=== PATIENT | male | born 1955 | race Caucasian/White ===

== ENCOUNTER 2017-06-14 10:24 | Inpatient (IN) | payer OTHER ==
--- NOTE | 2017-06-14 14:15 | RAD ---
HISTORY: chest pain COMPARISON: None available. TECHNIQUE: Chest, one view. FINDINGS: LUNGS: No focal consolidation. Please note that chest x-ray has limited sensitivity for the detection of pulmonary masses. PLEURA: No significant pleural effusion identified. No definite pneumothorax . CARDIOVASCULAR: The cardiomediastinal silhouette appears within normal limits of size. OSSEOUS STRUCTURES: No acute osseous abnormality identified. VISUALIZED UPPER ABDOMEN: Unremarkable. OTHER FINDINGS: None. IMPRESSION: No focal consolidation identified.
[2017-06-14 14:22] LABS: BASO # 0.2 K/uL (0.0-0.2); BASO % 1.7 % (0.0-2.0); EOS % 0.4 % (0.0-4.0); HEMOGLOBIN 8.2 g/dL (12.0-18.0); LYMPH # 1.6 K/uL (1.0-4.3); LYMPH % 13.8 % (20.0-40.0); MEAN CORPUSCULAR HEMOGLOBIN 19.1 pg (27.0-31.0); MEAN CORPUSCULAR HGB CONC 30.3 g/dL (33.0-37.0); MEAN PLATELET VOLUME 7.3 fL (7.2-11.7); MONO # 0.7 K/uL (0.0-0.8); MONO % 6.2 % (0.0-10.0); NEUT # 8.9 K/uL (1.8-7.0); NEUT % 77.9 % (50.0-75.0); NRBC % 0.1 % (0.0-2.0); RBC 4.27 Mil/uL (4.40-5.90); RED CELL DISTRIBUTION WIDTH 18.3 % (11.5-14.5); WHITE BLOOD COUNT 11.4 K/uL (4.8-10.8)
[2017-06-14 14:32] LABS: ALB/GLOB RATIO 1.2 (1.0-2.1); ALBUMIN 4.6 g/dL (3.5-5.0); ALT/SGPT 22 U/L (21-72); AST/SGOT 29 U/L (17-59); BLOOD UREA NITROGEN 18 mg/dL (9-20); CALCIUM 9.7 mg/dl (8.6-10.4); GFR AFRICAN-AMERICAN 50; GFR NON-AFRICAN AMERICAN 41
[2017-06-14 14:41] LABS: PROTHROMBIN TIME 11.3 SECONDS (9.7-12.2)
[2017-06-14] MEDS ORDERED: Sodium Chloride 0.9% 1,000 ML IV ONE ×2 (14:57→16:29)
[2017-06-14 16:10] LABS: SQUAMOUS EPITHIAL 1 /hpf (0-5); URINE BACTERIA MOD (<OCC); URINE BILIRUBIN NEGATIVE (NEGATIVE); URINE BLOOD 2+ (NEGATIVE); URINE CLARITY Hazy (Clear); URINE COLOR Amber (YELLOW); URINE GLUCOSE (UA) NORMAL (Normal); URINE HYALINE CAST >20 /lpf (0-2); URINE LEUKOCYTE ESTERASE 3+ Leu/uL (Negative); URINE NITRATE NEGATIVE (NEGATIVE); URINE PROTEIN 2+ mg/dL (NEGATIVE); URINE UROBILINOGEN NORMAL mg/dL (0.2-1.0)
[2017-06-14] MEDS ORDERED: Iodixanol 320 MG/ML 100 ML BOTTLE IV ONE (16:16)
--- NOTE | 2017-06-14 16:30 | C.PDOC ---
History Of Present Illness 62-year-old male, presents to the emergency department with complaints of one month duration of epigastric abdominal pain, and chest pain that radiates to back, and is described as a "tearing" sensation. Patient notes he was evaluated by his PMD and diagnosed with costochondritis. He was given Rx for muscle relaxants that he has been taking with minimal relief. Pain worsened over the past few days, resulting in him coming to the ED for evaluation. Secondary complaint is urinary retention. No other complaints at this time. Time Seen by Provider: 06/14/17 12:57 Chief Complaint (Nursing): Abdominal Pain History Per: Patient History/Exam Limitations: no limitations Onset/Duration Of Symptoms: Days Current Symptoms Are (Timing): Still Present Severity: Moderate Location Of Pain/Discomfort: Epigastric Radiation Of Pain To:: Back, Chest Past Medical History Reviewed: Historical Data, Nursing Documentation, Vital Signs Vital Signs: Last Vital Signs Temp 98.2 F 06/14/17 16:12 Pulse 100 H 06/14/17 16:12 Resp 20 06/14/17 16:12 BP 121/78 06/14/17 16:12 Pulse Ox 98 06/14/17 18:28 - Medical History PMH: HTN, Hypercholesterolemia Family History: States: No Known Family Hx - Social History Hx Alcohol Use: No Hx Substance Use: No - Immunization History Hx Influenza Vaccination: No Review Of Systems Except As Marked, All Systems Reviewed And Found Negative. Constitutional: Negative for: Fever, Chills Cardiovascular: Positive for: Chest Pain. Negative for: Palpitations, Orthopnea , Edema, Light Headedness Respiratory: Positive for: Shortness of Breath. Negative for: Hemoptysis, Sputum Gastrointestinal: Positive for: Abdominal Pain. Negative for: Nausea, Vomiting Musculoskeletal: Positive for: Back Pain Skin: Negative for: Rash Neurological: Negative for: Weakness, Numbness, Headache, Dizziness Physical Exam - Physical Exam Appears: Non-toxic, No Acute Distress Skin: Normal Color, Warm, Dry, No Diaphoretic, No Rash, No Jaundice Head: Atraumatic, Normacephalic Eye(s): bilateral: PERRL Nose: Normal Oral Mucosa: Moist Lips: Normal Appearing Neck: Normal ROM Chest: Symmetrical, No Tenderness Cardiovascular: Rhythm Regular, No Murmur Respiratory: Normal Breath Sounds, No Accessory Muscle Use Extremity: Normal ROM, No Deformity, No Swelling Neurological/Psych: Oriented x3, Normal Speech (no focal deficits) ED Course And Treatment - Laboratory Results Result Diagrams: 06/14/17 14:09 06/14/17 14:09 O2 Sat by Pulse Oximetry: 98 (RA) Pulse Ox Interpretation: Normal Critical Care Time - Critical Care Note Total Time (in mins): 35 Documented critical care: time excludes all time spent performing seperately billable procedures. Medical Decision Making Medical Decision Making: Plan: * CT Dissection r/o * EKG * CMP, Trop I * CBC, D-Dimer, PT/PTT * Morphine, Protonix, IVF x2, Toradol, Zofran * Reassess and Disposition At 1700, the patient began having large amounts vomiting bright red blood mixed with coffee grounds. NS IVF given. Zofran IV, octreotide IV, and protonix ordered. Case was discussed with Dr. Pena (covering for Dr. Duval) who states to order Protonix drip. Vomiting continues repeat CBC and type and cross ordered. BP is 115/51, HR 98. Patient found to have possible cholecystitis , but is not stable for ultrasound at this time. The case was discussed with Dr. Miranda (Remediation Project Engineer oncall) who agrees to place patient on ICU. Case was discussed Dr. Glen Longoria (PMD) who agrees to admit the patient to his service. Disposition - Disposition Disposition: HOSPITALIZED Disposition Time: 17:45 Condition: GUARDED - POA Present On Arrival: None - Clinical Impression Clinical Impression: Acute GI hemorrhage, Chest pain - Scribe Statement The provider has reviewed the documentation as recorded by the Scribe (Katherine Rose) All medical record entries made by the Scribe were at my direction and personally dictated by me. I have reviewed the chart and agree that the record accurately reflects my personal performance of the history, physical exam, medical decision making, and the department course for this patient. I have also personally directed, reviewed, and agree with the discharge instructions and disposition.
[2017-06-14] MEDS ORDERED: Sodium Chloride 0.9% 1,000 ML ONE (16:49)
--- NOTE | 2017-06-14 17:15 | CT ---
Dissection CT Indication: chest/epigast pain radiating to the back Technique: Contiguous axial images of the chest and abdomen without and with IV contrast utilizing dissection protocol. Coronal and Sagittal reformats generated and reviewed. This CT exam was performed using 1 or more of the following dose reduction techniques: Automated exposure control, adjustment of the MAA and/or kV according to patient size, and/or use of iterative reconstruction technique. Contrast: Oral contrast was not administered. 100 cc Visipaque IV was administered. Radiation dose: Total exam DLP = 1161.39 MGy-cm. Comparison: Chest x-ray performed 06/14/17 Findings: Visualized portions of the inferior thyroid gland appear unremarkable. The mediastinal and hilar vascular structures appear within normal limits. The heart appears within normal limits of size. Coronary artery calcifications. No large central or segmental pulmonary embolus evident. Mild emphysematous changes. No focal consolidation. No pleural effusion. No pneumothorax. No suspicious pulmonary nodules measuring greater than 5 mm. Distal gastric wall thickening/antral thickening; correlate clinically for gastritis. Pericholecystic gallbladder wall edema/ thickening. No calcified gallstones identified. Several too small to characterize renal hypodensities statistically likely cysts. Additional 1.5 cm right probable renal cyst. The liver, spleen, pancreas, and adrenal glands appear unremarkable. The stomach is nondistended. The bowel loops appear within normal limits of caliber without evidence of intestinal obstruction. Wall thickening of the proximal duodenum adjacent to the gallbladder may reflect infectious or inflammatory changes. Diverticulosis without CT evidence of acute diverticulitis. There is no definite free air. The appendix appears within normal limits of caliber. No secondary signs of acute appendicitis. Mild degenerative changes of the spine. Impression: Pericholecystic gallbladder wall edema/ thickening. Surrounding inflammatory changes. No calcified gallstones identified. Correlate for possibility of acute cholecystitis. Wall thickening of the proximal duodenum adjacent to the gallbladder may reflect infectious or inflammatory changes. Distal gastric wall thickening/antral thickening; correlate clinically for gastritis. Diverticulosis without CT evidence of acute diverticulitis. Mild emphysematous changes. Several too small to characterize renal hypodensities statistically likely cysts. Additional 1.5 cm right probable renal cyst. Additional findings as above.
[2017-06-14] MEDS ORDERED: Pantoprazole 80 MG in Sodium Chloride 0.9% 100 ML IV STA (18:26)
[2017-06-14] MEDS ORDERED: Morphine 4 MG/ML VIAL ONE (18:34)
--- NOTE | 2017-06-14 18:44 | CP.PCM.CON ---
History of Present Illness - History of Present Illness History of Present Illness: ICU Consult Note, PGY-1 Note 62 year old male with a past medical history of hypertension, hypercholesterolemia and Type 2 Diabetes comes into [facility] complaining of epigastric tenderness for the past one month. The patient describes the pain as sharp in nature with radiation to the back. As a result he reports a loss of 20lbs over the past three months. Patient denies any association with food intake. The patient also reports reproducible chest pain that has been recurring for the past six weeks. Of note the patient went to his PMD on May 21 and was diagnosed with costochondritis. The patient denies any palpitations, syncopal episodes, recent travel, sick contacts, changes in types of foods consumes, nausea, vomiting, headaches, or any other complaints. Past medical history: htn, hypercholesterolemia, dm Medications: Metformin 850mg Daily, Simvastatin 20mg Daily, Lisinopril-HCTZ: 12.5MG Daily, Gabapentin 300mg Daily, Metoprolol 50mg Daily Past surgical history : Denies Allergies: Denies Social: 50 year x1 pack a day. Social drinker. Denies illicit drug use. Lives with Full code Review of Systems - Constitutional Constitutional: Weight Loss. absent: Anorexia, Daytime Sleepiness, Fever, Frequent Falls, Headache, Malaise, Night Sweats, Snoring - EENT Eyes: absent: Blurred Vision, Loss of Peripheral Vision, Sees Flashes Ears: absent: Ear Discharge, Dizziness Nose/Mouth/Throat: absent: Nose Pain, Halitosis - Cardiovascular Cardiovascular: absent: Chest Pain at Rest, Diaphoresis, Irregular Heart Rhythm , Leg Edema - Respiratory Respiratory: absent: Dyspnea, Pain on Inspiration, Change in Mucous Color - Gastrointestinal Gastrointestinal: Change in Stool Character. absent: Diarrhea, Fecal Incontinence, Loose Stools, Melena, Nausea, Vomiting - Genitourinary Genitourinary: absent: Change in Urinary Stream, Pyuria, Urinary Hesitance - Musculoskeletal Musculoskeletal: absent: Arthralgias, Limited Range of Motion, Myalgias, Tingling - Integumentary Integumentary: absent: Bleeding Lesions, Sores, Striae, Swelling - Neurological Neurological: absent: Abnormal Hearing, Burning Sensations, Tingling, Tremor, Vertigo, Weakness - Psychiatric Psychiatric: absent: Anhedonia, Behavioral Changes, Depression, Panic Attacks - Endocrine Endocrine: absent: Polyphagia, Polyuria Past Patient History - Past Social History Smoking Status: Light Smoker < 10 Cigarettes Daily - CARDIAC Hx Hypercholesterolemia: Yes Hx Hypertension: Yes - ENDOCRINE/METABOLIC Hx Endocrine Disorders: Yes Hx Diabetes Mellitus Type 2: Yes - PSYCHIATRIC Hx Substance Use: No - ANESTHESIA Hx Anesthesia: No Meds Allergies/Adverse Reactions: Allergies Allergy/AdvReac Type Severity Reaction Status Date / Time No Known Allergies Allergy Verified 06/14/17 11:42 - Medications Medications: Current Medications Pantoprazole Sodium 80 mg/ (Sodium Chloride) 100 mls @ 10 mls/hr IV .Q10H STA PRN Reason: 8 MG/HR Stop: 06/15/17 04:25 Physical Exam - Head Exam Head Exam: ATRAUMATIC, NORMAL INSPECTION, NORMOCEPHALIC - Eye Exam Eye Exam: EOMI, Normal appearance, PERRL Pupil Exam: NORMAL ACCOMODATION, PERRL - ENT Exam ENT Exam: Mucous Membranes Moist, Normal Exam, Normal Oropharynx - Neck Exam Neck exam: Positive for: Normal Inspection. Negative for: Lymphadenopathy, Thyromegaly - Respiratory Exam Respiratory Exam: Clear to Auscultation Bilateral, NORMAL BREATHING PATTERN. absent: Chest Wall Tenderness, Prolonged Expiratory Phase, Respiratory Distress - Cardiovascular Exam Cardiovascular Exam: REGULAR RHYTHM, +S1, +S2 - GI/Abdominal Exam GI & Abdominal Exam: Normal Bowel Sounds, Soft, Tenderness - Rectal Exam Rectal Exam: absent: NORMAL INSPECTION - Extremities Exam Extremities exam: Positive for: full ROM. Negative for: joint swelling, pedal edema Additional comments: chronic venous changes noted. - Back Exam Back exam: NORMAL INSPECTION. absent: CVA tenderness (L), CVA tenderness (R), paraspinal tenderness - Neurological Exam Neurological exam: Alert, CN II-XII Intact, Oriented x3 - Psychiatric Exam Psychiatric exam: Normal Affect, Normal Mood - Skin Skin Exam: Dry, Intact Results - Vital Signs Recent Vital Signs: Last Vital Signs Temp 98.2 F 06/14/17 16:12 Pulse 100 H 06/14/17 16:12 Resp 20 06/14/17 16:12 BP 107/54 L 06/14/17 18:10 Pulse Ox 98 06/14/17 18:29 - Labs Result Diagrams: 06/15/17 06:28 06/15/17 06:28 Labs: Laboratory Results - last 24 hr 06/14/17 06/14/1718 11:45 14:09 14:09 WBC 11.4 H RBC 4.27 L Hgb 8.2 L Hct 26.9 L MCV 63.0 L MCH 19.1 L MCHC 30.3 L RDW 18.3 H Plt Count 712 H MPV 7.3 Neut % (Auto) 77.9 H Lymph % (Auto) 13.8 L [place] % (Auto) 6.2 Eos % (Auto) 0.4 Baso % (Auto) 1.7 Neut # (Auto) 8.9 H Lymph # (Auto) 1.6 [place] # (Auto) 0.7 Eos # (Auto) 0.0 Baso # (Auto) 0.2 Differential Comment PT 11.3 INR 1.0 APTT 34 D-Dimer, Quantitative 923 H Sodium Potassium Chloride Carbon Dioxide Anion Gap BUN Creatinine Est GFR ( Amer) Est GFR (Non-Af Amer) POC Glucose (mg/dL) 152 H Random Glucose Calcium Total Bilirubin AST ALT Alkaline Phosphatase Troponin I Total Protein Albumin Globulin Albumin/Globulin Ratio Urine Color Urine Clarity Urine pH Ur Specific [place] Urine Protein Urine Glucose (UA) Urine Ketones Urine Blood Urine Nitrate Urine Bilirubin Urine Urobilinogen Ur Leukocyte Esterase Urine WBC (Auto) Urine RBC (Auto) Ur Squamous Epith Cells Ur Transition Epith Cell Urine Bacteria Hyaline Casts Stool Occult Blood 06/14/17 06/14/17 06/14/17 14:09 15:50 15:50 WBC RBC Hgb Hct MCV MCH MCHC RDW Plt Count MPV Neut % (Auto) Lymph % (Auto) [place] % (Auto) Eos % (Auto) Baso % (Auto) Neut # (Auto) Lymph # (Auto) [place] # (Auto) Eos # (Auto) Baso # (Auto) Differential Comment PT INR APTT D-Dimer, Quantitative Sodium 134 Potassium 4.2 Chloride 93 L Carbon Dioxide 23 Anion Gap 23 H BUN 18 Creatinine 1.7 H Est GFR ( Amer) 50 Est GFR (Non-Af Amer) 41 POC Glucose (mg/dL) Random Glucose 160 H Calcium 9.7 Total Bilirubin 0.8 AST 29 ALT 22 Alkaline Phosphatase 119 Troponin I < 0.0120 Total Protein 8.4 H Albumin 4.6 Globulin 3.8 Albumin/Globulin Ratio 1.2 Urine Color [place] Urine Clarity Hazy Urine pH 5.0 Ur Specific [place] 1.016 Urine Protein 2+ H Urine Glucose (UA) Normal Urine Ketones Negative Urine Blood 2+ H Urine Nitrate Negative Urine Bilirubin Negative Urine Urobilinogen Normal Ur Leukocyte Esterase 3+ H Urine WBC (Auto) 125 H Urine RBC (Auto) 16 H Ur Squamous Epith Cells 1 Ur Transition Epith Cell 1 Urine Bacteria Mod H Hyaline Casts >20 H Stool Occult Blood Positive H Assessment & Plan - Assessment and Plan (Free Text) Assessment: 62 year old male with a past medical history of diabetes, hypertension, hypercholesterolemia being admitted for acute gi bleed. Plan: -IV NS @100cc/hr -Dr. Duval consulted. Will f/u with rec's. -CBC Q6 H. -NPO -Heparin contraindicated at this time. Will hold. -Continue Protonix Drip -All PO devon meds held. -Accuchecks -Transfused patient 2 units if Hemoglobin drops below 7. -Type and Screen. Discussed case with Dr. Miranda. Disposition: Patient seen and examined by ICU. Patient will be admitted to ICU for further management.
[2017-06-14] MEDS: Sodium Chloride 0.9% 1,000 ML IV SCH (19:05)
[2017-06-14 19:21] LABS: BASO # 0.1 K/uL (0.0-0.2); BASO % 0.5 % (0.0-2.0); EOS # 0.1 K/uL (0.0-0.7); EOS % 0.5 % (0.0-4.0); HEMOGLOBIN 6.6 g/dL (12.0-18.0); LYMPH # 1.2 K/uL (1.0-4.3); LYMPH % 10.5 % (20.0-40.0); MEAN CELL VOLUME 63.6 fL (80.0-94.0); MEAN CORPUSCULAR HEMOGLOBIN 19.4 pg (27.0-31.0); MEAN CORPUSCULAR HGB CONC 30.5 g/dL (33.0-37.0); MEAN PLATELET VOLUME 7.4 fL (7.2-11.7); MONO # 0.8 K/uL (0.0-0.8); MONO % 6.8 % (0.0-10.0); NEUT # 9.5 K/uL (1.8-7.0); NEUT % 81.7 % (50.0-75.0); RBC 3.39 Mil/uL (4.40-5.90); RED CELL DISTRIBUTION WIDTH 18.1 % (11.5-14.5); WHITE BLOOD COUNT 11.6 K/uL (4.8-10.8)
--- NOTE | 2017-06-14 19:44 | CP.PCM.CON ---
History of Present Illness - History of Present Illness History of Present Illness: ASked to see pt this evening for GI bleed. 1 month inf sharp CP and epig pain. 3 months wt loss- 20 lbs. Poor po x 3 months. Tooks NSAID x 1 month. Reports black stool on and off x 2 weeks. Had black stool x1 today am. Vomited coffee grounds in ER x 1. Denies PUD, dysphagia. Review of Systems - Constitutional Constitutional: Anorexia, Fatigue, Weight Loss - EENT Eyes: absent: Photophobia Nose/Mouth/Throat: absent: Dysphagia - Cardiovascular Cardiovascular: Chest Pain, Dyspnea. absent: Palpitations, Pedal Edema, Syncope - Respiratory Respiratory: absent: Cough, Hemoptysis, Wheezing - Gastrointestinal Gastrointestinal: Abdominal Pain, Coffee Ground Emesis, Dyspepsia, Hematemesis, Melena, Vomiting. absent: Dysphagia - Genitourinary Genitourinary: absent: Hematuria - Musculoskeletal Musculoskeletal: absent: Muscle Cramps, Muscle Weakness - Integumentary Integumentary: absent: Rash, Jaundice - Neurological Neurological: absent: Convulsions Past Patient History - Past Social History Smoking Status: Light Smoker < 10 Cigarettes Daily - CARDIAC Hx Hypercholesterolemia: Yes Hx Hypertension: Yes - ENDOCRINE/METABOLIC Hx Endocrine Disorders: Yes Hx Diabetes Mellitus Type 2: Yes - PSYCHIATRIC Hx Substance Use: No - ANESTHESIA Hx Anesthesia: No Meds Allergies/Adverse Reactions: Allergies Allergy/AdvReac Type Severity Reaction Status Date / Time No Known Allergies Allergy Verified 06/14/17 11:42 - Medications Medications: Current Medications Pantoprazole Sodium 80 mg/ (Sodium Chloride) 100 mls @ 10 mls/hr IV .Q10H STA PRN Reason: 8 MG/HR Stop: 06/15/17 04:25 Last Admin: 06/14/17 19:05 Dose: 10 mls/hr Sodium Chloride (Sodium Chloride 0.9%) 1,000 mls @ 100 mls/hr IV .Q10H CRUZ Last Admin: 06/14/17 19:05 Dose: 100 mls/hr Physical Exam - Constitutional Appears: Non-toxic - Respiratory Exam Respiratory Exam: Clear to Auscultation Bilateral - Cardiovascular Exam Cardiovascular Exam: RRR - GI/Abdominal Exam GI & Abdominal Exam: Normal Bowel Sounds, Soft. absent: Distended, Guarding, Mass, Rebound, Tenderness - Extremities Exam Extremities exam: Negative for: calf tenderness, pedal edema - Neurological Exam Neurological exam: Alert, Oriented x3 - Psychiatric Exam Psychiatric exam: Normal Mood Results - Vital Signs Recent Vital Signs: Last Vital Signs Temp 98.2 F 06/14/17 16:12 Pulse 83 06/14/17 18:36 Resp 18 06/14/17 18:36 BP 100/56 L 06/14/17 18:57 Pulse Ox 100 06/14/17 18:57 - Labs Result Diagrams: 06/14/17 19:05 06/14/17 14:09 Labs: Laboratory Results - last 24 hr 06/14/17 06/14/17 06/14/17 11:45 14:09 14:09 WBC 11.4 H RBC 4.27 L Hgb 8.2 L Hct 26.9 L MCV 63.0 L MCH 19.1 L MCHC 30.3 L RDW 18.3 H Plt Count 712 H MPV 7.3 Neut % (Auto) 77.9 H Lymph % (Auto) 13.8 L [place] % (Auto) 6.2 Eos % (Auto) 0.4 Baso % (Auto) 1.7 Neut # (Auto) 8.9 H Lymph # (Auto) 1.6 [place] # (Auto) 0.7 Eos # (Auto) 0.0 Baso # (Auto) 0.2 Differential Comment PT 11.3 INR 1.0 APTT 34 D-Dimer, Quantitative 923 H Sodium Potassium Chloride Carbon Dioxide Anion Gap BUN Creatinine Est GFR ( Amer) Est GFR (Non-Af Amer) POC Glucose (mg/dL) 152 H Random Glucose Calcium Total Bilirubin AST ALT Alkaline Phosphatase Troponin I Total Protein Albumin Globulin Albumin/Globulin Ratio Lipase Urine Color Urine Clarity Urine pH Ur Specific [place] Urine Protein Urine Glucose (UA) Urine Ketones Urine Blood Urine Nitrate Urine Bilirubin Urine Urobilinogen Ur Leukocyte Esterase Urine WBC (Auto) Urine RBC (Auto) Ur Squamous Epith Cells Ur Transition Epith Cell Urine Bacteria Hyaline Casts Stool Occult Blood Blood Type 06/14/17 06/14/17 06/14/17 14:09 15:50 15:50 WBC RBC Hgb Hct MCV MCH MCHC RDW Plt Count MPV Neut % (Auto) Lymph % (Auto) [place] % (Auto) Eos % (Auto) Baso % (Auto) Neut # (Auto) Lymph # (Auto) [place] # (Auto) Eos # (Auto) Baso # (Auto) Differential Comment PT INR APTT D-Dimer, Quantitative Sodium 134 Potassium 4.2 Chloride 93 L Carbon Dioxide 23 Anion Gap 23 H BUN 18 Creatinine 1.7 H Est GFR ( Amer) 50 Est GFR (Non-Af Amer) 41 POC Glucose (mg/dL) Random Glucose 160 H Calcium 9.7 Total Bilirubin 0.8 AST 29 ALT 22 Alkaline Phosphatase 119 Troponin I < 0.0120 Total Protein 8.4 H Albumin 4.6 Globulin 3.8 Albumin/Globulin Ratio 1.2 Lipase Urine Color [place] Urine Clarity Hazy Urine pH 5.0 Ur Specific [place] 1.016 Urine Protein 2+ H Urine Glucose (UA) Normal Urine Ketones Negative Urine Blood 2+ H Urine Nitrate Negative Urine Bilirubin Negative Urine Urobilinogen Normal Ur Leukocyte Esterase 3+ H Urine WBC (Auto) 125 H Urine RBC (Auto) 16 H Ur Squamous Epith Cells 1 Ur Transition Epith Cell 1 Urine Bacteria Mod H Hyaline Casts >20 H Stool Occult Blood Positive H Blood Type 06/14/17 06/14/17 06/14/17 19:05 19:05 19:05 WBC 11.6 H RBC 3.39 L Hgb 6.6 L Hct 21.6 L MCV 63.6 L MCH 19.4 L MCHC 30.5 L RDW 18.1 H Plt Count 538 H D MPV 7.4 Neut % (Auto) 81.7 H Lymph % (Auto) 10.5 L [place] % (Auto) 6.8 Eos % (Auto) 0.5 Baso % (Auto) 0.5 Neut # (Auto) 9.5 H Lymph # (Auto) 1.2 [place] # (Auto) 0.8 Eos # (Auto) 0.1 Baso # (Auto) 0.1 Differential Comment PT INR APTT D-Dimer, Quantitative Sodium Potassium Chloride Carbon Dioxide Anion Gap BUN Creatinine Est GFR ( Amer) Est GFR (Non-Af Amer) POC Glucose (mg/dL) Random Glucose Calcium Total Bilirubin AST ALT Alkaline Phosphatase Troponin I Total Protein Albumin Globulin Albumin/Globulin Ratio Lipase 135 Urine Color Urine Clarity Urine pH Ur Specific [place] Urine Protein Urine Glucose (UA) Urine Ketones Urine Blood Urine Nitrate Urine Bilirubin Urine Urobilinogen Ur Leukocyte Esterase Urine WBC (Auto) Urine RBC (Auto) Ur Squamous Epith Cells Ur Transition Epith Cell Urine Bacteria Hyaline Casts Stool Occult Blood Blood Type O POSITIVE Assessment & Plan (1) Epigastric pain Assessment and Plan: Consider PUD, MWT, gastritis, gastric CA Status: Acute (2) Diabetes mellitus Status: Acute (3) HTN (hypertension) Assessment and Plan: Meds on hold due to BP- 90 Status: Acute (4) Weight loss Assessment and Plan: Consider ulcer or tumorHematemesis and melena: c/w UGIB. Likely ulcer. Consider MWT, tumor, AVM. + NSAIDs. Denies ETOH. REc: NPO Transfuse 2 units PPI drip EGD when stable- CBC and CP. Discussed with DR Gannon and ER PA. Status: Acute (5) Acute GI hemorrhage Status: Acute (6) Chest pain Status: Acute (7) Abnormal CT of the abdomen Assessment and Plan: Consider ulcer, inflammation, or tumor. Status: Acute (8) ARF (acute renal failure) Assessment and Plan: Cr 1.7 Status: Acute
[2017-06-15] MEDS: Sodium Chloride 0.9% 1,000 ML IV SCH (05:25)
[2017-06-15] MEDS: Pantoprazole 80 MG in Sodium Chloride 0.9% 100 ML IVP SCH ×2 (05:51→15:04)
[2017-06-15 06:39] LABS: MEAN CELL VOLUME 68.5 fL (80.0-94.0); MEAN CORPUSCULAR HEMOGLOBIN 22.2 pg (27.0-31.0); MEAN CORPUSCULAR HGB CONC 32.4 g/dL (33.0-37.0); MEAN PLATELET VOLUME 7.7 fL (7.2-11.7); RBC 3.63 Mil/uL (4.40-5.90); RED CELL DISTRIBUTION WIDTH 22.1 % (11.5-14.5); WHITE BLOOD COUNT 8.6 K/uL (4.8-10.8)
[2017-06-15 06:53] LABS: ALB/GLOB RATIO 1.1 (1.0-2.1); ALBUMIN 3.2 g/dL (3.5-5.0); ALT/SGPT 21 U/L (21-72); AST/SGOT 28 U/L (17-59); BLOOD UREA NITROGEN 23 mg/dL (9-20); CALCIUM 8.1 mg/dl (8.6-10.4); GFR AFRICAN-AMERICAN > 60; GFR NON-AFRICAN AMERICAN > 60
[2017-06-15] MEDS ORDERED: Propofol 10 mg/ml Inj (20 ML) ONE (07:28)
--- NOTE | 2017-06-15 09:31 | CP.PCM.HP ---
History of Present Illness - History of Present Illness History of Present Illness: CC: Abd pain 62 y/o male with heavy Tobacco use, NIDDM, HTN and hyperlipidemia. Patient had pain all over his body. Pain is describe as pricking sensation and cramps all over his body. He was seen in [facility] and [facility] A1C, normal CPK. TSH and Hg 13. Initially refuse colonoscopy/ GI eval but agreed on wkend c/o inc pain. Pain got worse on night on 06/12. Pt was [facility] ER Present on Admission - Present on Admission Any Indicators Present on Admission: Yes History of DVT/PE: No History of Uncontrolled Diabetes: No Urinary Catheter: No Decubitus Ulcer Present: No Review of Systems - Review of Systems Systems not reviewed;Unavailable: Acuity of Condition - Constitutional Constitutional: Malaise, Night Sweats, Weight Loss, Weakness. absent: Fever, Headache - EENT Eyes: absent: Diplopia, Loss of Peripheral Vision, Requires Corrective Lenses, Spots in Vision, Loss of Vision Ears: absent: Ear Pain, Disequilibrium, Dizziness Nose/Mouth/Throat: absent: Nasal Congestion, Nose Pain, Sinus Pressure, Bleeding Gums, Dysphagia - Cardiovascular Cardiovascular: Chest Pain. absent: Edema, Leg Edema, Palpitations, Pedal Edema , Slow Heart Rate, Syncope - Respiratory Respiratory: Cough, Wheezing, Chest Congestion, Pain with Coughing. absent: Dyspnea, Pain on Inspiration, Excessive Mucous Production, Change in Mucous Color - Gastrointestinal Gastrointestinal: Cramping, Early Satiety, Heartburn, Nausea. absent: Bloating , Coffee Ground Emesis, Diarrhea, Dyspepsia - Genitourinary Genitourinary: Nocturia. absent: Dysuria, Hematuria, Pyuria - Musculoskeletal Musculoskeletal: Back Pain, Muscle Cramps, Muscle Weakness, Myalgias, Tingling. absent: Joint Swelling, Loss of Height, Numbness - Integumentary Integumentary: absent: Dry Skin, Rash, Unusual Bruising - Neurological Neurological: Abnormal Gait, Radicular Pain, Restless Legs. absent: Dizziness, Vertigo Past Patient History - Infectious Disease Hx of Infectious Diseases: None - Past Medical History & Family History Past Medical History?: Yes - Past Social History Smoking Status: Light Smoker < 10 Cigarettes Daily - CARDIAC Hx Hypercholesterolemia: Yes Hx Hypertension: Yes - PULMONARY Hx Respiratory Disorders: No - NEUROLOGICAL Hx Neurological Disorder: No - HEENT Hx HEENT Problems: No - RENAL Hx Chronic Kidney Disease: No - ENDOCRINE/METABOLIC Hx Endocrine Disorders: Yes Hx Diabetes Mellitus Type 2: Yes - HEMATOLOGICAL/ONCOLOGICAL Hx Blood Disorders: No - INTEGUMENTARY Hx Dermatological Problems: No - MUSCULOSKELETAL/RHEUMATOLOGICAL Hx Falls: No - GASTROINTESTINAL Hx Gastrointestinal Disorders: No - GENITOURINARY/GYNECOLOGICAL Hx Genitourinary Disorders: No - PSYCHIATRIC Hx Substance Use: No - SURGICAL HISTORY Hx Surgeries: No - ANESTHESIA Hx Anesthesia: No Meds Allergies/Adverse Reactions: Allergies Allergy/AdvReac Type Severity Reaction Status Date / Time No Known Allergies Allergy Verified 06/14/17 11:42 Physical Exam - Constitutional Appears: No Acute Distress - Eye Exam Eye Exam: Normal appearance - ENT Exam ENT Exam: Mucous Membranes Moist - Neck Exam Neck exam: Positive for: Full Rom. Negative for: Lymphadenopathy, Normal Inspection, Thyromegaly - Respiratory Exam Respiratory Exam: Decreased Breath Sounds. absent: Rhonchi, Wheezes - Cardiovascular Exam Cardiovascular Exam: REGULAR RHYTHM, +S1, +S2. absent: Gallop, JVD, Systolic Murmur - GI/Abdominal Exam GI & Abdominal Exam: Soft. absent: Mass, Tenderness - Extremities Exam Extremities exam: Positive for: full ROM, normal capillary refill, pedal pulses present. Negative for: calf tenderness, joint swelling, pedal edema Results - Vital Signs Recent Vital Signs: Last Vital Signs Temp 98.0 F 06/15/17 08:00 Pulse 67 06/15/17 09:05 Resp 10 L 06/15/17 09:05 BP 127/65 06/15/17 09:06 Pulse Ox 100 06/15/17 09:05 - Labs Result Diagrams: 06/15/17 06:28 06/15/17 06:28 Labs: Laboratory Results - last 24 hr 06/14/17 06/14/17 06/14/17 11:45 14:09 14:09 WBC 11.4 H RBC 4.27 L Hgb 8.2 L Hct 26.9 L MCV 63.0 L MCH 19.1 L MCHC 30.3 L RDW 18.3 H Plt Count 712 H MPV 7.3 Neut % (Auto) 77.9 H Lymph % (Auto) 13.8 L [place] % (Auto) 6.2 Eos % (Auto) 0.4 Baso % (Auto) 1.7 Neut # (Auto) 8.9 H Lymph # (Auto) 1.6 [place] # (Auto) 0.7 Eos # (Auto) 0.0 Baso # (Auto) 0.2 Differential Comment PT 11.3 INR 1.0 APTT 34 D-Dimer, Quantitative 923 H Sodium Potassium Chloride Carbon Dioxide Anion Gap BUN Creatinine Est GFR ( Amer) Est GFR (Non-Af Amer) POC Glucose (mg/dL) 152 H Random Glucose Calcium Total Bilirubin AST ALT Alkaline Phosphatase Troponin I Total Protein Albumin Globulin Albumin/Globulin Ratio Lipase Urine Color Urine Clarity Urine pH Ur Specific [place] Urine Protein Urine Glucose (UA) Urine Ketones Urine Blood Urine Nitrate Urine Bilirubin Urine Urobilinogen Ur Leukocyte Esterase Urine WBC (Auto) Urine RBC (Auto) Ur Squamous Epith Cells Ur Transition Epith Cell Urine Bacteria Hyaline Casts Stool Occult Blood Blood Type Antibody Screen 06/14/17 06/14/17 06/14/17 14:09 15:50 15:50 WBC RBC Hgb Hct MCV MCH MCHC RDW Plt Count MPV Neut % (Auto) Lymph % (Auto) [place] % (Auto) Eos % (Auto) Baso % (Auto) Neut # (Auto) Lymph # (Auto) [place] # (Auto) Eos # (Auto) Baso # (Auto) Differential Comment PT INR APTT D-Dimer, Quantitative Sodium 134 Potassium 4.2 Chloride 93 L Carbon Dioxide 23 Anion Gap 23 H BUN 18 Creatinine 1.7 H Est GFR ( Amer) 50 Est GFR (Non-Af Amer) 41 POC Glucose (mg/dL) Random Glucose 160 H Calcium 9.7 Total Bilirubin 0.8 AST 29 ALT 22 Alkaline Phosphatase 119 Troponin I < 0.0120 Total Protein 8.4 H Albumin 4.6 Globulin 3.8 Albumin/Globulin Ratio 1.2 Lipase Urine Color [place] Urine Clarity Hazy Urine pH 5.0 Ur Specific [place] 1.016 Urine Protein 2+ H Urine Glucose (UA) Normal Urine Ketones Negative Urine Blood 2+ H Urine Nitrate Negative Urine Bilirubin Negative Urine Urobilinogen Normal Ur Leukocyte Esterase 3+ H Urine WBC (Auto) 125 H Urine RBC (Auto) 16 H Ur Squamous Epith Cells 1 Ur Transition Epith Cell 1 Urine Bacteria Mod H Hyaline Casts >20 H Stool Occult Blood Positive H Blood Type Antibody Screen 06/14/17 06/14/17 06/14/17 19:05 19:05 19:05 WBC 11.6 H RBC 3.39 L Hgb 6.6 L Hct 21.6 L MCV 63.6 L MCH 19.4 L MCHC 30.5 L RDW 18.1 H Plt Count 538 H D MPV 7.4 Neut % (Auto) 81.7 H Lymph % (Auto) 10.5 L [place] % (Auto) 6.8 Eos % (Auto) 0.5 Baso % (Auto) 0.5 Neut # (Auto) 9.5 H Lymph # (Auto) 1.2 [place] # (Auto) 0.8 Eos # (Auto) 0.1 Baso # (Auto) 0.1 Differential Comment PT INR APTT D-Dimer, Quantitative Sodium Potassium Chloride Carbon Dioxide Anion Gap BUN Creatinine Est GFR ( Amer) Est GFR (Non-Af Amer) POC Glucose (mg/dL) Random Glucose Calcium Total Bilirubin AST ALT Alkaline Phosphatase Troponin I Total Protein Albumin Globulin Albumin/Globulin Ratio Lipase 135 Urine Color Urine Clarity Urine pH Ur Specific [place] Urine Protein Urine Glucose (UA) Urine Ketones Urine Blood Urine Nitrate Urine Bilirubin Urine Urobilinogen Ur Leukocyte Esterase Urine WBC (Auto) Urine RBC (Auto) Ur Squamous Epith Cells Ur Transition Epith Cell Urine Bacteria Hyaline Casts Stool Occult Blood Blood Type O POSITIVE Antibody Screen Negative 06/15/17 06/15/17 06:28 06:28 WBC 8.6 RBC 3.63 L Hgb 8.0 L Hct 24.9 L MCV 68.5 L D MCH 22.2 L MCHC 32.4 L RDW 22.1 H Plt Count 446 H MPV 7.7 Neut % (Auto) Lymph % (Auto) [place] % (Auto) Eos % (Auto) Baso % (Auto) Neut # (Auto) Lymph # (Auto) [place] # (Auto) Eos # (Auto) Baso # (Auto) Differential Comment PT INR APTT D-Dimer, Quantitative Sodium 132 Potassium 4.2 Chloride 99 Carbon Dioxide 23 Anion Gap 14 BUN 23 H Creatinine 1.2 Est GFR ( Amer) > 60 Est GFR (Non-Af Amer) > 60 POC Glucose (mg/dL) Random Glucose 122 H Calcium 8.1 L Total Bilirubin 1.6 H AST 28 ALT 21 Alkaline Phosphatase 71 Troponin I Total Protein 6.1 L Albumin 3.2 L D Globulin 2.9 Albumin/Globulin Ratio 1.1 Lipase Urine Color Urine Clarity Urine pH Ur Specific [place] Urine Protein Urine Glucose (UA) Urine Ketones Urine Blood Urine Nitrate Urine Bilirubin Urine Urobilinogen Ur Leukocyte Esterase Urine WBC (Auto) Urine RBC (Auto) Ur Squamous Epith Cells Ur Transition Epith Cell Urine Bacteria Hyaline Casts Stool Occult Blood Blood Type Antibody Screen - EKG Data EKG Interpreted by: Myself Rate: Normal Assessment & Plan - Assessment and Plan (Free Text) Assessment: GI Bleed; HTN, NIDDM, COPD CT reviewed Cont meds/ Add Advair FS monitoring promise to quit smoking
[2017-06-15] MEDS ORDERED: Dextrose 5%/0.9% NS 1,000 ML IV SCH (10:30)
[2017-06-15] MEDS ORDERED: (Novolin R) Insulin Human Regular 100 units/ml vial SC SCH ×2 (10:45→22:00)
[2017-06-15] MEDS: (Novolin R) Insulin Human Regular 100 units/ml vial SC SCH ×2 (12:03→17:31)
[2017-06-15] MEDS: Fluticasone-Salmeterol 250-50mcg Diskus INH SCH (21:15)
[2017-06-16] MEDS: Pantoprazole 80 MG in Sodium Chloride 0.9% 100 ML IVP SCH (01:32)
--- NOTE | 2017-06-16 03:03 | PCM.RRT ---
CUTTER TENDER Nurses Assessment - Situation Date: 06/16/17 - Head Head Exam: NORMAL INSPECTION - Eyes Eye Exam: EOMI, Normal appearance - Respiratory Exam Respiratory Exam: Clear to Ausculation Bilateral, NORMAL BREATHING PATTERN. absent: Respiratory Distress - Cardiovascular Exam Cardiovascular Exam: REGULAR RHYTHM, +S1, +S2 - GI/Abdominal Exam GI & Abdominal Exam: Normal Bowel Sounds - Neurological Exam Neurological Exam: Awake - Extremities Exam Extremities Exam: Normal Inspection Plan - Assessment of Findings&Treatment Plan CUTTER TENDER was called for vomiting blood. Patient admitted for GI bleed had one episode of vomiting bright red blood. Gown and sheets were soaked. Patient states he feels dizzy and weak. Vitals were taken: BP 88/50, HR 89, O2 99%, Glucose 206. NS bolus was started. Patient already on protonix drip. CBC ordered for 30 minutes after bolus. ICU was called and agreed to take patient. Vitals rechecked: BP 112/72, HR 90, O2 98%. EKG nsr. Patient transferring to ICU bed 2.
[2017-06-16 04:03] LABS: BASO # 0.3 K/uL (0.0-0.2); BASO % 2.5 % (0.0-2.0); EOS # 0.3 K/uL (0.0-0.7); EOS % 2.7 % (0.0-4.0); LYMPH # 0.7 K/uL (1.0-4.3); LYMPH % 7.1 % (20.0-40.0); MEAN CORPUSCULAR HEMOGLOBIN 21.3 pg (27.0-31.0); MEAN CORPUSCULAR HGB CONC 30.9 g/dL (33.0-37.0); MEAN PLATELET VOLUME 6.9 fL (7.2-11.7); MONO # 0.5 K/uL (0.0-0.8); MONO % 4.7 % (0.0-10.0); NEUT # 8.7 K/uL (1.8-7.0); PLATELET COUNT 412 K/uL (130-400); RBC 2.84 Mil/uL (4.40-5.90); RED CELL DISTRIBUTION WIDTH 21.2 % (11.5-14.5); WHITE BLOOD COUNT 10.5 K/uL (4.8-10.8)
[2017-06-16 04:06] LABS: HEMOGLOBIN 6.1 g/dL (12.0-18.0)
--- NOTE | 2017-06-16 04:59 | CP.PCM.CON ---
History of Present Illness - History of Present Illness History of Present Illness: 62 year old male with a past medical history of diabetes, hypertension, hypercholesterolemia admitted for acute GI bleed initially in ICU transferred to floor.COLLEGE ADVISOR was called for vomiting blood. Patient had one episode of vomiting bright red blood. Gown and sheets were soaked. Patient states he feels dizzy and weak. was hypotensive, Glucose 206. IVF started and continued on protonix drip. CBC showed drop in Hb to 6.1 Review of Systems - Review of Systems Systems not reviewed;Unavailable: Unstable Vital Signs - Constitutional Constitutional: absent: Chills, Fever - EENT Eyes: absent: Blurred Vision, Itchy Eyes Ears: absent: Ear Discharge, Dizziness Nose/Mouth/Throat: absent: Sore Throat - Cardiovascular Cardiovascular: absent: Chest Pain, Dyspnea, Edema - Respiratory Respiratory: absent: Cough, Dyspnea - Gastrointestinal Gastrointestinal: absent: Abdominal Pain, Heartburn, Nausea, Vomiting - Genitourinary Genitourinary: absent: Dysuria, Urinary Frequency - Musculoskeletal Musculoskeletal: absent: Neck Pain - Integumentary Integumentary: absent: Pruritus, Rash - Neurological Neurological: absent: Confusion, Focal Weakness - Hematologic/Lymphatic Hematologic: absent: Easy Bleeding Past Patient History - Infectious Disease Hx of Infectious Diseases: None - Past Medical History & Family History Past Medical History?: Yes - Past Social History Smoking Status: Light Smoker < 10 Cigarettes Daily - CARDIAC Hx Hypercholesterolemia: Yes Hx Hypertension: Yes - PULMONARY Hx Respiratory Disorders: No - NEUROLOGICAL Hx Neurological Disorder: No - HEENT Hx HEENT Problems: No - RENAL Hx Chronic Kidney Disease: No - ENDOCRINE/METABOLIC Hx Endocrine Disorders: Yes Hx Diabetes Mellitus Type 2: Yes - HEMATOLOGICAL/ONCOLOGICAL Hx Blood Disorders: No - INTEGUMENTARY Hx Dermatological Problems: No - MUSCULOSKELETAL/RHEUMATOLOGICAL Hx Falls: No - GASTROINTESTINAL Hx Gastrointestinal Disorders: No - GENITOURINARY/GYNECOLOGICAL Hx Genitourinary Disorders: No - PSYCHIATRIC Hx Substance Use: No - SURGICAL HISTORY Hx Surgeries: No - ANESTHESIA Hx Anesthesia: No Meds Allergies/Adverse Reactions: Allergies Allergy/AdvReac Type Severity Reaction Status Date / Time No Known Allergies Allergy Verified 06/14/17 11:42 - Medications Medications: Current Medications Pantoprazole Sodium 80 mg/ (Sodium Chloride) 100 mls @ 10 mls/hr IVP .Q10H [facility] PRN Reason: 8 MG/HR Last Admin: 06/16/17 01:32 Dose: 10 mls/hr Insulin Human Regular (Novolin R) 0 unit SC ACHS [facility] PRN Reason: Protocol Last Admin: 06/15/17 22:14 Dose: Not Given Pneumococcal Polyvalent Vaccine (Pneumovax 23 Vaccine) 0.5 ml IM .ONCE ONE Stop: 06/16/17 10:01 Fluticasone/Salmeterol (Advair Diskus 250/50) 1 puff INH RQ12 [facility] Physical Exam - Constitutional Appears: No Acute Distress - Head Exam Head Exam: ATRAUMATIC, NORMAL INSPECTION, NORMOCEPHALIC - Eye Exam Eye Exam: EOMI, Normal appearance, PERRL - ENT Exam ENT Exam: Mucous Membranes Moist - Neck Exam Neck exam: Positive for: Normal Inspection - Respiratory Exam Respiratory Exam: Clear to Auscultation Bilateral, NORMAL BREATHING PATTERN - Cardiovascular Exam Cardiovascular Exam: REGULAR RHYTHM. absent: JVD, Systolic Murmur - GI/Abdominal Exam GI & Abdominal Exam: Normal Bowel Sounds, Soft. absent: Tenderness - Extremities Exam Extremities exam: Positive for: normal inspection. Negative for: calf tenderness, pedal edema - Neurological Exam Neurological exam: Alert, Oriented x3 - Skin Skin Exam: Pallor Results - Vital Signs Recent Vital Signs: Last Vital Signs Temp 98.5 F 06/16/17 04:00 Pulse 84 06/16/17 04:28 Resp 14 06/16/17 04:28 BP 110/69 06/16/17 00:00 Pulse Ox 100 06/16/17 04:28 - Labs Result Diagrams: 06/16/17 03:59 06/15/17 06:28 Labs: Laboratory Results - last 24 hr 06/14/17 06/15/17 06/15/17 19:05 06:28 06:28 WBC 8.6 RBC 3.63 L Hgb 8.0 L Hct 24.9 L MCV 68.5 L D MCH 22.2 L MCHC 32.4 L RDW 22.1 H Plt Count 446 H MPV 7.7 Neut % (Auto) Lymph % (Auto) [place] % (Auto) Eos % (Auto) Baso % (Auto) Neut # (Auto) Lymph # (Auto) [place] # (Auto) Eos # (Auto) Baso # (Auto) Sodium 132 Potassium 4.2 Chloride 99 Carbon Dioxide 23 Anion Gap 14 BUN 23 H Creatinine 1.2 Est GFR ( Amer) > 60 Est GFR (Non-Af Amer) > 60 POC Glucose (mg/dL) Random Glucose 122 H Calcium 8.1 L Total Bilirubin 1.6 H AST 28 ALT 21 Alkaline Phosphatase 71 Total Protein 6.1 L Albumin 3.2 L D Globulin 2.9 Albumin/Globulin Ratio 1.1 Blood Type O POSITIVE Antibody Screen Negative 06/15/17 06/15/17 06/15/17 07:33 11:55 12:54 WBC RBC Hgb 7.9 L Hct MCV MCH MCHC RDW Plt Count MPV Neut % (Auto) Lymph % (Auto) [place] % (Auto) Eos % (Auto) Baso % (Auto) Neut # (Auto) Lymph # (Auto) [place] # (Auto) Eos # (Auto) Baso # (Auto) Sodium Potassium Chloride Carbon Dioxide Anion Gap BUN Creatinine Est GFR ( Amer) Est GFR (Non-Af Amer) POC Glucose (mg/dL) 124 H 122 H Random Glucose Calcium Total Bilirubin AST ALT Alkaline Phosphatase Total Protein Albumin Globulin Albumin/Globulin Ratio Blood Type Antibody Screen 06/15/17 06/15/17 06/16/17 17:26 22:00 02:58 WBC RBC Hgb Hct MCV MCH MCHC RDW Plt Count MPV Neut % (Auto) Lymph % (Auto) [place] % (Auto) Eos % (Auto) Baso % (Auto) Neut # (Auto) Lymph # (Auto) [place] # (Auto) Eos # (Auto) Baso # (Auto) Sodium Potassium Chloride Carbon Dioxide Anion Gap BUN Creatinine Est GFR ( Amer) Est GFR (Non-Af Amer) POC Glucose (mg/dL) 99 149 H 206 H Random Glucose Calcium Total Bilirubin AST ALT Alkaline Phosphatase Total Protein Albumin Globulin Albumin/Globulin Ratio Blood Type Antibody Screen 06/16/17 03:59 WBC 10.5 RBC 2.84 L Hgb 6.1 L* Hct 19.6 L MCV 69.0 L MCH 21.3 L MCHC 30.9 L RDW 21.2 H Plt Count 412 H MPV 6.9 L Neut % (Auto) 83.0 H Lymph % (Auto) 7.1 L [place] % (Auto) 4.7 Eos % (Auto) 2.7 Baso % (Auto) 2.5 H Neut # (Auto) 8.7 H Lymph # (Auto) 0.7 L [place] # (Auto) 0.5 Eos # (Auto) 0.3 Baso # (Auto) 0.3 H Sodium Potassium Chloride Carbon Dioxide Anion Gap BUN Creatinine Est GFR ( Amer) Est GFR (Non-Af Amer) POC Glucose (mg/dL) Random Glucose Calcium Total Bilirubin AST ALT Alkaline Phosphatase Total Protein Albumin Globulin Albumin/Globulin Ratio Blood Type Antibody Screen Assessment & Plan - Assessment and Plan (Free Text) Assessment: 1. Upper G1 bleed and Anemia-IVF,PRBC transfusion,CBC , -Continue Protonix Drip GI f/u 2.DM-Accucheck with coverage 3.HTN-f/u BP and restart meds as needed 4.Hyperlipidemia resume meds when stable
[2017-06-16 05:05] LABS: BASOPHIL 2 % (0-2); EOSINOPHIL 2 % (0-4); LYMPHOCYTE 8 % (20-40); MONOCYTE 4 % (0-10); NEUTROPHIL 84 % (50-75); TOTAL CELLS COUNTED 100
[2017-06-16 05:06] LABS: PLATELET ESTIMATE SLIGHTLY INCREASED (NORMAL)
[2017-06-16 05:07] LABS: ANISOCYTOSIS MODERATE; HYPOCHROMIC MODERATE; MICROCYTOSIS MODERATE; OVALOCYTES SLIGHT; POLYCHROMIC SLIGHT
[2017-06-16 05:08] LABS: LARGE PLATELETS PRESENT
[2017-06-16] MEDS: Sodium Chloride 0.45% 1,000 ML IV SCH (06:31)
[2017-06-16] MEDS: (Novolin R) Insulin Human Regular 100 units/ml vial SC SCH ×4 (06:36→23:10)
[2017-06-16 07:04] LABS: ALB/GLOB RATIO 1.1 (1.0-2.1); ALBUMIN 2.6 g/dL (3.5-5.0); ALT/SGPT 21 U/L (21-72); AST/SGOT 13 U/L (17-59); BLOOD UREA NITROGEN 15 mg/dL (9-20); CALCIUM 7.7 mg/dl (8.6-10.4); GFR AFRICAN-AMERICAN > 60; GFR NON-AFRICAN AMERICAN > 60; MAGNESIUM 1.9 mg/dL (1.6-2.3)
[2017-06-16] MEDS: Fluticasone-Salmeterol 250-50mcg Diskus INH SCH ×2 (08:19→22:39)
--- NOTE | 2017-06-16 09:09 | CP.PCM.PN ---
Subjective - Date & Time of Evaluation Date of Evaluation: 06/16/17 Time of Evaluation: 08:35 - Subjective Subjective: Pt no complain but vomitted blood after drinking grape juice. NO CP, no cough, no palpitation, no edema, no dysuria Objective - Vital Signs/Intake and Output Vital Signs (last 24 hours): Temp Pulse Resp BP Pulse Ox 98.6 F 83 15 135/59 L 100 06/16/17 08:00 06/16/17 08:21 06/16/17 08:04 06/16/17 08:04 06/16/17 08:04 Intake and Output: 06/16/17 06/16/17 06:59 18:59 Intake Total 460 20 Output Total 0 Balance 460 20 - Medications Medications: Current Medications Sodium Chloride (Sodium Chloride 0.45%) 1,000 mls @ 60 mls/hr IV .[id number] [facility] Last Admin: 06/16/17 06:31 Dose: Not Given Pantoprazole Sodium 80 mg/ (Sodium Chloride) 100 mls @ 10 mls/hr IV .Q10H [facility] PRN Reason: 8 MG/HR Insulin Human Regular (Novolin R) 0 unit SC Q6H [facility] PRN Reason: Protocol Last Admin: 06/16/17 06:36 Dose: Not Given Pneumococcal Polyvalent Vaccine (Pneumovax 23 Vaccine) 0.5 ml IM .ONCE ONE Stop: 06/16/17 10:01 Fluticasone/Salmeterol (Advair Diskus 250/50) 1 puff INH RQ12 [facility] Last Admin: 06/16/17 08:19 Dose: 1 puff - Labs Labs: 06/16/17 03:59 06/16/17 06:23 PT 11.3 SECONDS (9.7-12.2) 06/14/17 14:09 INR 1.0 06/14/17 14:09 APTT 34 SECONDS (21-34) 06/14/17 14:09 - Constitutional Appears: No Acute Distress - Eye Exam Eye Exam: Normal appearance - ENT Exam ENT Exam: Mucous Membranes Moist - Neck Exam Neck Exam: Full ROM. absent: Lymphadenopathy, Thyromegaly - Respiratory Exam Respiratory Exam: Decreased Breath Sounds. absent: Rales, Rhonchi, Wheezes - Cardiovascular Exam Cardiovascular Exam: REGULAR RHYTHM, +S1, +S2, Murmur. absent: Gallop, JVD - GI/Abdominal Exam GI & Abdominal Exam: Soft, Hyperactive Bowel Sounds. absent: Tenderness, Mass - Extremities Exam Extremities Exam: Full ROM, Normal Capillary Refill. absent: Calf Tenderness, Joint Swelling, Pedal Edema Assessment and Plan - Assessment and Plan (Free Text) Assessment: GI Bleed 2 Antral Ulcer/ Esophagitis COPD, HTN, NIDDM Supportive care On Protonix. FS and Advair Slowly advance diet
[2017-06-16] MEDS ORDERED: Influenza Vaccine 60 mcg/0.5 mL SYR (4YR UP) IM ONE (10:00)
[2017-06-16] MEDS ORDERED: Pneumococcal 23-Valent Vaccine IM ONE (10:00)
--- NOTE | 2017-06-16 10:06 | CP.PCM.PN ---
Subjective - Date & Time of Evaluation Date of Evaluation: 06/16/17 Time of Evaluation: 10:03 - Subjective Subjective: CC: GI Bleed Transferred to ICU overnight due to hematemesis and hypotension. Hgb dropped to 6.1. Now receivibg second unit PRBCs. Vital have stabilized. Has not had BM/ melena. at bedside. Early satiety, abdominal pain. NSAID use. EGD- markedly distorted distal gastric anatomy with ulceration, likely malignancy. Objective - Vital Signs/Intake and Output Vital Signs (last 24 hours): Temp Pulse Resp BP Pulse Ox 98.4 F 82 14 122/57 L 100 06/16/17 09:45 06/16/17 09:45 06/16/17 09:45 06/16/17 09:45 06/16/17 09:34 Intake and Output: 06/16/17 06/16/17 06:59 18:59 Intake Total 460 385 Output Total 0 Balance 460 385 - Medications Medications: Current Medications Sodium Chloride (Sodium Chloride 0.45%) 1,000 mls @ 60 mls/hr IV .[id number] [facility] Last Admin: 06/16/17 06:31 Dose: Not Given Pantoprazole Sodium 80 mg/ (Sodium Chloride) 100 mls @ 10 mls/hr IV .Q10H [facility] PRN Reason: 8 MG/HR Insulin Human Regular (Novolin R) 0 unit SC Q6H [facility] PRN Reason: Protocol Last Admin: 06/16/17 06:36 Dose: Not Given Fluticasone/Salmeterol (Advair Diskus 250/50) 1 puff INH RQ12 [facility] Last Admin: 06/16/17 08:19 Dose: 1 puff - Labs Labs: 06/16/17 03:59 06/16/17 06:23 PT 11.3 SECONDS (9.7-12.2) 06/14/17 14:09 INR 1.0 06/14/17 14:09 APTT 34 SECONDS (21-34) 06/14/17 14:09 - Constitutional Appears: Well, No Acute Distress - Head Exam Head Exam: NORMOCEPHALIC - Eye Exam Eye Exam: Normal appearance. absent: Scleral icterus - Neck Exam Neck Exam: Normal Inspection - Respiratory Exam Respiratory Exam: NORMAL BREATHING PATTERN - Cardiovascular Exam Cardiovascular Exam: REGULAR RHYTHM. absent: Tachycardia - GI/Abdominal Exam GI & Abdominal Exam: Soft. absent: Tenderness, Mass, Rebound Assessment and Plan (1) Acute GI hemorrhage Assessment & Plan: Due to gastric ulcer Malignancy suspected Rec: PPI drip, NPO. Obtain surgery consult if bleeding continues. May need repeat EGD if biopsies nondiagnostic - discussed with patient and . Status: Acute (2) Diabetes mellitus Status: Acute (3) HTN (hypertension) Status: Acute (4) Weight loss Assessment & Plan: Anorexia. Early satiety due to gastric outlet obstruction. Gastric Malignancy suspected Awaiting biopsies Status: Acute
--- NOTE | 2017-06-16 10:37 | CP.CCUPN ---
<Robel Mcmanus - Last Filed: 06/16/17 10:53> CCU Subjective - Physician Review Subjective (Free Text): Patient was seen and examined. Has not had any further bloody emesis or bloody BM since the episode overnight. Denies epigastric pain, nausea, vomiting. Currently receiving 2nd unit of pRBC. CCU Objective - Vital Signs / Intake & Output Vital Signs (Last 4 hours): Vital Signs Temp Pulse Resp BP Pulse Ox 06/16/17 10:00 98.4 F 16 L 90 H 137/63 06/16/17 09:45 98.4 F 82 22 122/57 L 06/16/17 09:34 84 14 130/71 100 06/16/17 09:30 98.0 F 84 15 130/71 06/16/17 09:19 83 14 133/69 100 06/16/17 09:04 82 14 133/62 100 06/16/17 09:00 98.0 F 85 14 123/65 100 06/16/17 08:59 85 13 123/65 100 06/16/17 08:49 83 12 129/72 100 06/16/17 08:33 87 13 123/70 100 06/16/17 08:21 83 06/16/17 08:20 85 11 L 115/56 L 100 06/16/17 08:04 75 15 135/59 L 100 06/16/17 08:00 98.6 F 82 11 L 100 06/16/17 07:48 79 12 135/71 100 06/16/17 07:35 98.5 F 79 12 117/66 06/16/17 07:34 79 12 117/66 100 06/16/17 07:19 83 11 L 127/71 100 06/16/17 07:04 74 12 129/62 100 06/16/17 07:00 74 12 100 06/16/17 06:58 98.5 F 77 13 121/66 06/16/17 06:49 77 14 121/66 100 06/16/17 06:34 79 15 129/68 100 Intake and Output (Last 8hrs): Intake & Output 06/15/17 06/16/17 06/16/17 22:59 06:59 14:59 Intake Total 220 460 385 Output Total 300 0 Balance -80 460 385 Weight 152 lb Intake: IV 40 Intake, IV Amount 220 20 30 Right Antecubital 200 20 right AC Piggyback 20 20 10 Oral 400 0 Blood Product 0 325 Red Blood Cells Cpd As1 0 325 Lr Unit [id number] Red Blood Cells Cpd As1 0 Lr Unit [id number] Other 30 Red Blood Cells Cpd As1 30 Lr Unit [id number] Output: Urine 300 0 Urine, Voided 300 0 Other: # Voids Urine, Voided 0 1 0 # Bowel Movements 0 0 - Medications Active Medications: Active Medications Generic Name Dose Route Start Last Admin Trade Name Freq PRN Reason Stop Dose Admin Sodium Chloride 1,000 mls @ 60 mls/hr 06/16/17 05:15 06/16/17 06:31 Sodium Chloride 0.45% IV Not Given .[id number] CRUZ Pantoprazole Sodium 80 mg/ 100 mls @ 10 mls/hr 06/16/17 11:30 Sodium Chloride IV .Q10H CRUZ 8 MG/HR Insulin Human Regular 0 unit 06/16/17 05:15 06/16/17 06:36 Novolin R SC Not Given Q6H CRUZ Protocol Fluticasone/Salmeterol 1 puff 06/15/17 20:00 06/16/17 08:19 Advair Diskus 250/50 INH 1 puff RQ12 CRUZ Administration - Patient Studies Lab Studies: Lab Studies 06/16/17 06/16/17 06/16/17 Range/Units 06:35 06:23 03:59 WBC 10.5 (4.8-10.8) K/uL RBC 2.84 L (4.40-5.90) Mil/uL Hgb 6.1 L* (12.0-18.0) g/dL Hct 19.6 L (35.0-51.0) % MCV 69.0 L (80.0-94.0) fL MCH 21.3 L (27.0-31.0) pg MCHC 30.9 L (33.0-37.0) g/dL RDW 21.2 H (11.5-14.5) % Plt Count 412 H (130-400) K/uL MPV 6.9 L (7.2-11.7) fL Neut % (Auto) 83.0 H (50.0-75.0) % Lymph % (Auto) 7.1 L (20.0-40.0) % Moore % (Auto) 4.7 (0.0-10.0) % Eos % (Auto) 2.7 (0.0-4.0) % Baso % (Auto) 2.5 H (0.0-2.0) % Neut # (Auto) 8.7 H (1.8-7.0) K/uL Lymph # (Auto) 0.7 L (1.0-4.3) K/uL Moore # (Auto) 0.5 (0.0-0.8) K/uL Eos # (Auto) 0.3 (0.0-0.7) K/uL Baso # (Auto) 0.3 H (0.0-0.2) K/uL Neutrophils % (Manual) 84 H (50-75) % Lymphocytes % (Manual) 8 L (20-40) % Monocytes % (Manual) 4 (0-10) % Eosinophils % (Manual) 2 (0-4) % Basophils % (Manual) 2 (0-2) % Platelet Estimate Slightly increased H (NORMAL) Large Platelets Present Polychromasia Slight Hypochromasia (manual) Moderate Anisocytosis (manual) Moderate Microcytosis (manual) Moderate Ovalocytes Slight Sodium 134 (132-148) mmol/L Potassium 3.7 (3.6-5.2) mmol/L Chloride 103 (98-107) mmol/L Carbon Dioxide 24 (22-30) mmol/L Anion Gap 10 (10-20) BUN 15 (9-20) mg/dL Creatinine 1.0 (0.8-1.5) mg/dL Est GFR ( Amer) > 60 Est GFR (Non-Af Amer) > 60 POC Glucose (mg/dL) 153 H (65-110) mg/dL Random Glucose 153 H (75-110) mg/dL Calcium 7.7 L (8.6-10.4) mg/dl Phosphorus 3.1 (2.5-4.5) mg/dL Magnesium 1.9 (1.6-2.3) mg/dL Total Bilirubin 0.4 (0.2-1.3) mg/dL AST 13 L D (17-59) U/L ALT 21 (21-72) U/L Alkaline Phosphatase 64 (38-126) U/L Total Protein 5.0 L (6.3-8.3) g/dL Albumin 2.6 L (3.5-5.0) g/dL Globulin 2.4 (2.2-3.9) gm/dL Albumin/Globulin Ratio 1.1 (1.0-2.1) Carcinoembryonic Ag 1.0 (0-3.0) ng/mL Blood Type Antibody Screen 06/16/17 06/15/17 06/15/17 Range/Units 02:58 22:00 17:26 WBC (4.8-10.8) K/uL RBC (4.40-5.90) Mil/uL Hgb (12.0-18.0) g/dL Hct (35.0-51.0) % MCV (80.0-94.0) fL MCH (27.0-31.0) pg MCHC (33.0-37.0) g/dL RDW (11.5-14.5) % Plt Count (130-400) K/uL MPV (7.2-11.7) fL Neut % (Auto) (50.0-75.0) % Lymph % (Auto) (20.0-40.0) % Moore % (Auto) (0.0-10.0) % Eos % (Auto) (0.0-4.0) % Baso % (Auto) (0.0-2.0) % Neut # (Auto) (1.8-7.0) K/uL Lymph # (Auto) (1.0-4.3) K/uL Moore # (Auto) (0.0-0.8) K/uL Eos # (Auto) (0.0-0.7) K/uL Baso # (Auto) (0.0-0.2) K/uL Neutrophils % (Manual) (50-75) % Lymphocytes % (Manual) (20-40) % Monocytes % (Manual) (0-10) % Eosinophils % (Manual) (0-4) % Basophils % (Manual) (0-2) % Platelet Estimate (NORMAL) Large Platelets Polychromasia Hypochromasia (manual) Anisocytosis (manual) Microcytosis (manual) Ovalocytes Sodium (132-148) mmol/L Potassium (3.6-5.2) mmol/L Chloride (98-107) mmol/L Carbon Dioxide (22-30) mmol/L Anion Gap (10-20) BUN (9-20) mg/dL Creatinine (0.8-1.5) mg/dL Est GFR ( Amer) Est GFR (Non-Af Amer) POC Glucose (mg/dL) 206 H 149 H 99 (65-110) mg/dL Random Glucose (75-110) mg/dL Calcium (8.6-10.4) mg/dl Phosphorus (2.5-4.5) mg/dL Magnesium (1.6-2.3) mg/dL Total Bilirubin (0.2-1.3) mg/dL AST (17-59) U/L ALT (21-72) U/L Alkaline Phosphatase (38-126) U/L Total Protein (6.3-8.3) g/dL Albumin (3.5-5.0) g/dL Globulin (2.2-3.9) gm/dL Albumin/Globulin Ratio (1.0-2.1) Carcinoembryonic Ag (0-3.0) ng/mL Blood Type Antibody Screen 06/15/17 06/15/17 06/15/17 Range/Units 12:54 11:55 07:33 WBC (4.8-10.8) K/uL RBC (4.40-5.90) Mil/uL Hgb 7.9 L (12.0-18.0) g/dL Hct (35.0-51.0) % MCV (80.0-94.0) fL MCH (27.0-31.0) pg MCHC (33.0-37.0) g/dL RDW (11.5-14.5) % Plt Count (130-400) K/uL MPV (7.2-11.7) fL Neut % (Auto) (50.0-75.0) % Lymph % (Auto) (20.0-40.0) % Moore % (Auto) (0.0-10.0) % Eos % (Auto) (0.0-4.0) % Baso % (Auto) (0.0-2.0) % Neut # (Auto) (1.8-7.0) K/uL Lymph # (Auto) (1.0-4.3) K/uL Moore # (Auto) (0.0-0.8) K/uL Eos # (Auto) (0.0-0.7) K/uL Baso # (Auto) (0.0-0.2) K/uL Neutrophils % (Manual) (50-75) % Lymphocytes % (Manual) (20-40) % Monocytes % (Manual) (0-10) % Eosinophils % (Manual) (0-4) % Basophils % (Manual) (0-2) % Platelet Estimate (NORMAL) Large Platelets Polychromasia Hypochromasia (manual) Anisocytosis (manual) Microcytosis (manual) Ovalocytes Sodium (132-148) mmol/L Potassium (3.6-5.2) mmol/L Chloride (98-107) mmol/L Carbon Dioxide (22-30) mmol/L Anion Gap (10-20) BUN (9-20) mg/dL Creatinine (0.8-1.5) mg/dL Est GFR ( Amer) Est GFR (Non-Af Amer) POC Glucose (mg/dL) 122 H 124 H (65-110) mg/dL Random Glucose (75-110) mg/dL Calcium (8.6-10.4) mg/dl Phosphorus (2.5-4.5) mg/dL Magnesium (1.6-2.3) mg/dL Total Bilirubin (0.2-1.3) mg/dL AST (17-59) U/L ALT (21-72) U/L Alkaline Phosphatase (38-126) U/L Total Protein (6.3-8.3) g/dL Albumin (3.5-5.0) g/dL Globulin (2.2-3.9) gm/dL Albumin/Globulin Ratio (1.0-2.1) Carcinoembryonic Ag (0-3.0) ng/mL Blood Type Antibody Screen 06/14/17 Range/Units 19:05 WBC (4.8-10.8) K/uL RBC (4.40-5.90) Mil/uL Hgb (12.0-18.0) g/dL Hct (35.0-51.0) % MCV (80.0-94.0) fL MCH (27.0-31.0) pg MCHC (33.0-37.0) g/dL RDW (11.5-14.5) % Plt Count (130-400) K/uL MPV (7.2-11.7) fL Neut % (Auto) (50.0-75.0) % Lymph % (Auto) (20.0-40.0) % Moore % (Auto) (0.0-10.0) % Eos % (Auto) (0.0-4.0) % Baso % (Auto) (0.0-2.0) % Neut # (Auto) (1.8-7.0) K/uL Lymph # (Auto) (1.0-4.3) K/uL Moore # (Auto) (0.0-0.8) K/uL Eos # (Auto) (0.0-0.7) K/uL Baso # (Auto) (0.0-0.2) K/uL Neutrophils % (Manual) (50-75) % Lymphocytes % (Manual) (20-40) % Monocytes % (Manual) (0-10) % Eosinophils % (Manual) (0-4) % Basophils % (Manual) (0-2) % Platelet Estimate (NORMAL) Large Platelets Polychromasia Hypochromasia (manual) Anisocytosis (manual) Microcytosis (manual) Ovalocytes Sodium (132-148) mmol/L Potassium (3.6-5.2) mmol/L Chloride (98-107) mmol/L Carbon Dioxide (22-30) mmol/L Anion Gap (10-20) BUN (9-20) mg/dL Creatinine (0.8-1.5) mg/dL Est GFR ( Amer) Est GFR (Non-Af Amer) POC Glucose (mg/dL) (65-110) mg/dL Random Glucose (75-110) mg/dL Calcium (8.6-10.4) mg/dl Phosphorus (2.5-4.5) mg/dL Magnesium (1.6-2.3) mg/dL Total Bilirubin (0.2-1.3) mg/dL AST (17-59) U/L ALT (21-72) U/L Alkaline Phosphatase (38-126) U/L Total Protein (6.3-8.3) g/dL Albumin (3.5-5.0) g/dL Globulin (2.2-3.9) gm/dL Albumin/Globulin Ratio (1.0-2.1) Carcinoembryonic Ag (0-3.0) ng/mL Blood Type O POSITIVE Antibody Screen Negative Laboratory Results - last 24 hr 06/14/17 06/15/17 06/15/17 19:05 07:33 11:55 WBC RBC Hgb Hct MCV MCH MCHC RDW Plt Count MPV Neut % (Auto) Lymph % (Auto) Moore % (Auto) Eos % (Auto) Baso % (Auto) Neut # (Auto) Lymph # (Auto) Moore # (Auto) Eos # (Auto) Baso # (Auto) Neutrophils % (Manual) Lymphocytes % (Manual) Monocytes % (Manual) Eosinophils % (Manual) Basophils % (Manual) Platelet Estimate Large Platelets Polychromasia Hypochromasia (manual) Anisocytosis (manual) Microcytosis (manual) Ovalocytes Sodium Potassium Chloride Carbon Dioxide Anion Gap BUN Creatinine Est GFR ( Amer) Est GFR (Non-Af Amer) POC Glucose (mg/dL) 124 H 122 H Random Glucose Calcium Phosphorus Magnesium Total Bilirubin AST ALT Alkaline Phosphatase Total Protein Albumin Globulin Albumin/Globulin Ratio Carcinoembryonic Ag Blood Type O POSITIVE Antibody Screen Negative 06/15/17 06/15/17 06/15/17 12:54 17:26 22:00 WBC RBC Hgb 7.9 L Hct MCV MCH MCHC RDW Plt Count MPV Neut % (Auto) Lymph % (Auto) Moore % (Auto) Eos % (Auto) Baso % (Auto) Neut # (Auto) Lymph # (Auto) Moore # (Auto) Eos # (Auto) Baso # (Auto) Neutrophils % (Manual) Lymphocytes % (Manual) Monocytes % (Manual) Eosinophils % (Manual) Basophils % (Manual) Platelet Estimate Large Platelets Polychromasia Hypochromasia (manual) Anisocytosis (manual) Microcytosis (manual) Ovalocytes Sodium Potassium Chloride Carbon Dioxide Anion Gap BUN Creatinine Est GFR ( Amer) Est GFR (Non-Af Amer) POC Glucose (mg/dL) 99 149 H Random Glucose Calcium Phosphorus Magnesium Total Bilirubin AST ALT Alkaline Phosphatase Total Protein Albumin Globulin Albumin/Globulin Ratio Carcinoembryonic Ag Blood Type Antibody Screen 06/16/17 06/16/17 06/16/17 02:58 03:59 06:23 WBC 10.5 RBC 2.84 L Hgb 6.1 L* Hct 19.6 L MCV 69.0 L MCH 21.3 L MCHC 30.9 L RDW 21.2 H Plt Count 412 H MPV 6.9 L Neut % (Auto) 83.0 H Lymph % (Auto) 7.1 L Moore % (Auto) 4.7 Eos % (Auto) 2.7 Baso % (Auto) 2.5 H Neut # (Auto) 8.7 H Lymph # (Auto) 0.7 L Moore # (Auto) 0.5 Eos # (Auto) 0.3 Baso # (Auto) 0.3 H Neutrophils % (Manual) 84 H Lymphocytes % (Manual) 8 L Monocytes % (Manual) 4 Eosinophils % (Manual) 2 Basophils % (Manual) 2 Platelet Estimate Slightly increased H Large Platelets Present Polychromasia Slight Hypochromasia (manual) Moderate Anisocytosis (manual) Moderate Microcytosis (manual) Moderate Ovalocytes Slight Sodium 134 Potassium 3.7 Chloride 103 Carbon Dioxide 24 Anion Gap 10 BUN 15 Creatinine 1.0 Est GFR ( Amer) > 60 Est GFR (Non-Af Amer) > 60 POC Glucose (mg/dL) 206 H Random Glucose 153 H Calcium 7.7 L Phosphorus 3.1 Magnesium 1.9 Total Bilirubin 0.4 AST 13 L D ALT 21 Alkaline Phosphatase 64 Total Protein 5.0 L Albumin 2.6 L Globulin 2.4 Albumin/Globulin Ratio 1.1 Carcinoembryonic Ag 1.0 Blood Type Antibody Screen 06/16/17 06:35 WBC RBC Hgb Hct MCV MCH MCHC RDW Plt Count MPV Neut % (Auto) Lymph % (Auto) Moore % (Auto) Eos % (Auto) Baso % (Auto) Neut # (Auto) Lymph # (Auto) Moore # (Auto) Eos # (Auto) Baso # (Auto) Neutrophils % (Manual) Lymphocytes % (Manual) Monocytes % (Manual) Eosinophils % (Manual) Basophils % (Manual) Platelet Estimate Large Platelets Polychromasia Hypochromasia (manual) Anisocytosis (manual) Microcytosis (manual) Ovalocytes Sodium Potassium Chloride Carbon Dioxide Anion Gap BUN Creatinine Est GFR ( Amer) Est GFR (Non-Af Amer) POC Glucose (mg/dL) 153 H Random Glucose Calcium Phosphorus Magnesium Total Bilirubin AST ALT Alkaline Phosphatase Total Protein Albumin Globulin Albumin/Globulin Ratio Carcinoembryonic Ag Blood Type Antibody Screen Fingerstick Blood Sugar Results: 149 - Procedures Procedures (Free Text): - Head Exam Head Exam: ATRAUMATIC, NORMAL INSPECTION, NORMOCEPHALIC - Eye Exam Eye Exam: EOMI, Normal appearance, PERRL Pupil Exam: NORMAL ACCOMODATION, PERRL - ENT Exam ENT Exam: Mucous Membranes Moist, Normal Exam, Normal Oropharynx - Neck Exam Neck exam: Positive for: Normal Inspection. Negative for: Lymphadenopathy, Thyromegaly - Respiratory Exam Respiratory Exam: Clear to Auscultation Bilateral, NORMAL BREATHING PATTERN. absent: Chest Wall Tenderness, Prolonged Expiratory Phase, Respiratory Distress - Cardiovascular Exam Cardiovascular Exam: REGULAR RHYTHM, +S1, +S2 - GI/Abdominal Exam GI & Abdominal Exam: Normal Bowel Sounds, Soft, Tenderness - Rectal Exam Rectal Exam: absent: NORMAL INSPECTION - Extremities Exam Extremities exam: Positive for: full ROM. Negative for: joint swelling, pedal edema Additional comments: chronic venous changes noted. - Back Exam Back exam: NORMAL INSPECTION. absent: CVA tenderness (L), CVA tenderness (R), paraspinal tenderness - Neurological Exam Neurological exam: Alert, CN II-XII Intact, Oriented x3 - Psychiatric Exam Psychiatric exam: Normal Affect, Normal Mood - Skin Skin Exam: Dry, Intact Review of Systems - Review of Systems All systems: reviewed and no additional remarkable complaints except (as above) Critical Care Progress Note - Nutrition Nutrition: Nutrition Category Date Time Status NPO Diet [DIET] Diets 06/16/17 Breakfast Active Assessment/Plan - Assessment and Plan (Free Text) Assessment: 62 year old male with a past medical history of diabetes, hypertension, hypercholesterolemia being admitted for acute upper gi bleed. GI: Acute GI hemorrage, Early satiety Dr Chaudhry on board * Obtain surgery consult if bleeding continues. May need repeat EGD if biopsies non-diagnostic * Malignancy suspected EGD on 06/15 showed esophagitis, gastritis, gastric ulcer w/ clean base and gastric ulcer containing clot - biopsied - awaiting path results Hg dropped overnight due to episode of bloody emesis - currently receiving 2nd unit pRBC NPO PPI drip Endo: DM Accucheck with coverage Pulm: Advair Diskus 1puff INH BID <Justin,Alan S - Last Filed: 06/16/17 18:14> CCU Objective - Vital Signs / Intake & Output Vital Signs (Last 4 hours): Vital Signs Temp Pulse Resp BP Pulse Ox 06/16/17 16:15 79 15 143/72 99 06/16/17 16:00 98.9 F 93 H 16 99 06/16/17 15:15 86 13 136/74 98 06/16/17 15:00 88 99 06/16/17 14:15 81 15 138/73 Intake and Output (Last 8hrs): Intake & Output 06/16/17 06/16/17 06/16/17 06:59 14:59 22:59 Intake Total 460 930 140 Output Total 0 850 Balance 460 80 140 Weight 152 lb Intake: IV 40 Intake, IV Amount 20 200 140 Left Antecubital 120 120 Right Antecubital 70 20 right AC Piggyback 20 10 Oral 400 0 0 Blood Product 0 650 Red Blood Cells Cpd As1 0 325 Lr Unit [id number] Red Blood Cells Cpd As1 325 Lr Unit [id number] Other 80 Red Blood Cells Cpd As1 30 Lr Unit [id number] Red Blood Cells Cpd As1 50 Lr Unit [id number] Output: Urine 0 850 Urine, Voided 0 850 Other: # Voids Urine, Voided 1 1 0 # Bowel Movements 0 0 - Medications Active Medications: Active Medications Generic Name Dose Route Start Last Admin Trade Name Freq PRN Reason Stop Dose Admin Sodium Chloride 1,000 mls @ 60 mls/hr 06/16/17 05:15 06/16/17 06:31 Sodium Chloride 0.45% IV Not Given .[id number] Pantoprazole Sodium 80 mg/ 100 mls @ 10 mls/hr 06/16/17 11:30 06/16/17 11:22 Sodium Chloride IV 10 mls/hr .Q10H CRUZ Administration 8 MG/HR Insulin Human Regular 0 unit 06/16/17 05:15 06/16/17 12:24 Novolin R SC Not Given Q6H [facility] Protocol Pneumococcal Polyvalent Vaccine 0.5 ml 06/18/17 10:00 Pneumovax 23 Vaccine SC 06/18/17 10:01 .ONCE ONE Fluticasone/Salmeterol 1 puff 06/15/17 20:00 06/16/17 08:19 Advair Diskus 250/50 INH 1 puff RQ12 CRUZ Administration - Patient Studies Lab Studies: Lab Studies 06/16/17 06/16/17 06/16/17 Range/Units 13:28 11:56 06:35 WBC 10.6 (4.8-10.8) K/uL RBC 3.45 L (4.40-5.90) Mil/uL Hgb 8.9 L D (12.0-18.0) g/dL Hct 26.8 L (35.0-51.0) % MCV 77.5 L D (80.0-94.0) fL MCH 25.7 L (27.0-31.0) pg MCHC 33.1 (33.0-37.0) g/dL RDW 29.8 H (11.5-14.5) % Plt Count 376 (130-400) K/uL MPV 7.0 L (7.2-11.7) fL Neut % (Auto) 80.2 H (50.0-75.0) % Lymph % (Auto) 12.4 L (20.0-40.0) % Moore % (Auto) 5.6 (0.0-10.0) % Eos % (Auto) 0.8 (0.0-4.0) % Baso % (Auto) 1.0 (0.0-2.0) % Neut # (Auto) 8.5 H (1.8-7.0) K/uL Lymph # (Auto) 1.3 (1.0-4.3) K/uL Moore # (Auto) 0.6 (0.0-0.8) K/uL Eos # (Auto) 0.1 (0.0-0.7) K/uL Baso # (Auto) 0.1 (0.0-0.2) K/uL Neutrophils % (Manual) (50-75) % Lymphocytes % (Manual) (20-40) % Monocytes % (Manual) (0-10) % Eosinophils % (Manual) (0-4) % Basophils % (Manual) (0-2) % Platelet Estimate (NORMAL) Large Platelets Polychromasia Hypochromasia (manual) Anisocytosis (manual) Microcytosis (manual) Ovalocytes Sodium (132-148) mmol/L Potassium (3.6-5.2) mmol/L Chloride (98-107) mmol/L Carbon Dioxide (22-30) mmol/L Anion Gap (10-20) BUN (9-20) mg/dL Creatinine (0.8-1.5) mg/dL Est GFR ( Amer) Est GFR (Non-Af Amer) POC Glucose (mg/dL) 139 H 153 H (65-110) mg/dL Random Glucose (75-110) mg/dL Calcium (8.6-10.4) mg/dl Phosphorus (2.5-4.5) mg/dL Magnesium (1.6-2.3) mg/dL Total Bilirubin (0.2-1.3) mg/dL AST (17-59) U/L ALT (21-72) U/L Alkaline Phosphatase (38-126) U/L Total Protein (6.3-8.3) g/dL Albumin (3.5-5.0) g/dL Globulin (2.2-3.9) gm/dL Albumin/Globulin Ratio (1.0-2.1) Carcinoembryonic Ag (0-3.0) ng/mL Blood Type Antibody Screen 06/16/17 06/16/17 06/16/17 Range/Units 06:23 03:59 02:58 WBC 10.5 (4.8-10.8) K/uL RBC 2.84 L (4.40-5.90) Mil/uL Hgb 6.1 L* (12.0-18.0) g/dL Hct 19.6 L (35.0-51.0) % MCV 69.0 L (80.0-94.0) fL MCH 21.3 L (27.0-31.0) pg MCHC 30.9 L (33.0-37.0) g/dL RDW 21.2 H (11.5-14.5) % Plt Count 412 H (130-400) K/uL MPV 6.9 L (7.2-11.7) fL Neut % (Auto) 83.0 H (50.0-75.0) % Lymph % (Auto) 7.1 L (20.0-40.0) % Moore % (Auto) 4.7 (0.0-10.0) % Eos % (Auto) 2.7 (0.0-4.0) % Baso % (Auto) 2.5 H (0.0-2.0) % Neut # (Auto) 8.7 H (1.8-7.0) K/uL Lymph # (Auto) 0.7 L (1.0-4.3) K/uL Moore # (Auto) 0.5 (0.0-0.8) K/uL Eos # (Auto) 0.3 (0.0-0.7) K/uL Baso # (Auto) 0.3 H (0.0-0.2) K/uL Neutrophils % (Manual) 84 H (50-75) % Lymphocytes % (Manual) 8 L (20-40) % Monocytes % (Manual) 4 (0-10) % Eosinophils % (Manual) 2 (0-4) % Basophils % (Manual) 2 (0-2) % Platelet Estimate Slightly increased H (NORMAL) Large Platelets Present Polychromasia Slight Hypochromasia (manual) Moderate Anisocytosis (manual) Moderate Microcytosis (manual) Moderate Ovalocytes Slight Sodium 134 (132-148) mmol/L Potassium 3.7 (3.6-5.2) mmol/L Chloride 103 (98-107) mmol/L Carbon Dioxide 24 (22-30) mmol/L Anion Gap 10 (10-20) BUN 15 (9-20) mg/dL Creatinine 1.0 (0.8-1.5) mg/dL Est GFR ( Amer) > 60 Est GFR (Non-Af Amer) > 60 POC Glucose (mg/dL) 206 H (65-110) mg/dL Random Glucose 153 H (75-110) mg/dL Calcium 7.7 L (8.6-10.4) mg/dl Phosphorus 3.1 (2.5-4.5) mg/dL Magnesium 1.9 (1.6-2.3) mg/dL Total Bilirubin 0.4 (0.2-1.3) mg/dL AST 13 L D (17-59) U/L ALT 21 (21-72) U/L Alkaline Phosphatase 64 (38-126) U/L Total Protein 5.0 L (6.3-8.3) g/dL Albumin 2.6 L (3.5-5.0) g/dL Globulin 2.4 (2.2-3.9) gm/dL Albumin/Globulin Ratio 1.1 (1.0-2.1) Carcinoembryonic Ag 1.0 (0-3.0) ng/mL Blood Type Antibody Screen 06/15/17 06/14/17 Range/Units 22:00 19:05 WBC (4.8-10.8) K/uL RBC (4.40-5.90) Mil/uL Hgb (12.0-18.0) g/dL Hct (35.0-51.0) % MCV (80.0-94.0) fL MCH (27.0-31.0) pg MCHC (33.0-37.0) g/dL RDW (11.5-14.5) % Plt Count (130-400) K/uL MPV (7.2-11.7) fL Neut % (Auto) (50.0-75.0) % Lymph % (Auto) (20.0-40.0) % Moore % (Auto) (0.0-10.0) % Eos % (Auto) (0.0-4.0) % Baso % (Auto) (0.0-2.0) % Neut # (Auto) (1.8-7.0) K/uL Lymph # (Auto) (1.0-4.3) K/uL Moore # (Auto) (0.0-0.8) K/uL Eos # (Auto) (0.0-0.7) K/uL Baso # (Auto) (0.0-0.2) K/uL Neutrophils % (Manual) (50-75) % Lymphocytes % (Manual) (20-40) % Monocytes % (Manual) (0-10) % Eosinophils % (Manual) (0-4) % Basophils % (Manual) (0-2) % Platelet Estimate (NORMAL) Large Platelets Polychromasia Hypochromasia (manual) Anisocytosis (manual) Microcytosis (manual) Ovalocytes Sodium (132-148) mmol/L Potassium (3.6-5.2) mmol/L Chloride (98-107) mmol/L Carbon Dioxide (22-30) mmol/L Anion Gap (10-20) BUN (9-20) mg/dL Creatinine (0.8-1.5) mg/dL Est GFR ( Amer) Est GFR (Non-Af Amer) POC Glucose (mg/dL) 149 H (65-110) mg/dL Random Glucose (75-110) mg/dL Calcium (8.6-10.4) mg/dl Phosphorus (2.5-4.5) mg/dL Magnesium (1.6-2.3) mg/dL Total Bilirubin (0.2-1.3) mg/dL AST (17-59) U/L ALT (21-72) U/L Alkaline Phosphatase (38-126) U/L Total Protein (6.3-8.3) g/dL Albumin (3.5-5.0) g/dL Globulin (2.2-3.9) gm/dL Albumin/Globulin Ratio (1.0-2.1) Carcinoembryonic Ag (0-3.0) ng/mL Blood Type O POSITIVE Antibody Screen Negative Laboratory Results - last 24 hr 06/14/17 06/15/17 06/16/17 19:05 22:00 02:58 WBC RBC Hgb Hct MCV MCH MCHC RDW Plt Count MPV Neut % (Auto) Lymph % (Auto) Moore % (Auto) Eos % (Auto) Baso % (Auto) Neut # (Auto) Lymph # (Auto) Moore # (Auto) Eos # (Auto) Baso # (Auto) Neutrophils % (Manual) Lymphocytes % (Manual) Monocytes % (Manual) Eosinophils % (Manual) Basophils % (Manual) Platelet Estimate Large Platelets Polychromasia Hypochromasia (manual) Anisocytosis (manual) Microcytosis (manual) Ovalocytes Sodium Potassium Chloride Carbon Dioxide Anion Gap BUN Creatinine Est GFR ( Amer) Est GFR (Non-Af Amer) POC Glucose (mg/dL) 149 H 206 H Random Glucose Calcium Phosphorus Magnesium Total Bilirubin AST ALT Alkaline Phosphatase Total Protein Albumin Globulin Albumin/Globulin Ratio Carcinoembryonic Ag Blood Type O POSITIVE Antibody Screen Negative 06/16/17 06/16/17 06/16/17 03:59 06:23 06:35 WBC 10.5 RBC 2.84 L Hgb 6.1 L* Hct 19.6 L MCV 69.0 L MCH 21.3 L MCHC 30.9 L RDW 21.2 H Plt Count 412 H MPV 6.9 L Neut % (Auto) 83.0 H Lymph % (Auto) 7.1 L Moore % (Auto) 4.7 Eos % (Auto) 2.7 Baso % (Auto) 2.5 H Neut # (Auto) 8.7 H Lymph # (Auto) 0.7 L Moore # (Auto) 0.5 Eos # (Auto) 0.3 Baso # (Auto) 0.3 H Neutrophils % (Manual) 84 H Lymphocytes % (Manual) 8 L Monocytes % (Manual) 4 Eosinophils % (Manual) 2 Basophils % (Manual) 2 Platelet Estimate Slightly increased H Large Platelets Present Polychromasia Slight Hypochromasia (manual) Moderate Anisocytosis (manual) Moderate Microcytosis (manual) Moderate Ovalocytes Slight Sodium 134 Potassium 3.7 Chloride 103 Carbon Dioxide 24 Anion Gap 10 BUN 15 Creatinine 1.0 Est GFR ( Amer) > 60 Est GFR (Non-Af Amer) > 60 POC Glucose (mg/dL) 153 H Random Glucose 153 H Calcium 7.7 L Phosphorus 3.1 Magnesium 1.9 Total Bilirubin 0.4 AST 13 L D ALT 21 Alkaline Phosphatase 64 Total Protein 5.0 L Albumin 2.6 L Globulin 2.4 Albumin/Globulin Ratio 1.1 Carcinoembryonic Ag 1.0 Blood Type Antibody Screen 06/16/17 06/16/17 11:56 13:28 WBC 10.6 RBC 3.45 L Hgb 8.9 L D Hct 26.8 L MCV 77.5 L D MCH 25.7 L MCHC 33.1 RDW 29.8 H Plt Count 376 MPV 7.0 L Neut % (Auto) 80.2 H Lymph % (Auto) 12.4 L Moore % (Auto) 5.6 Eos % (Auto) 0.8 Baso % (Auto) 1.0 Neut # (Auto) 8.5 H Lymph # (Auto) 1.3 Moore # (Auto) 0.6 Eos # (Auto) 0.1 Baso # (Auto) 0.1 Neutrophils % (Manual) Lymphocytes % (Manual) Monocytes % (Manual) Eosinophils % (Manual) Basophils % (Manual) Platelet Estimate Large Platelets Polychromasia Hypochromasia (manual) Anisocytosis (manual) Microcytosis (manual) Ovalocytes Sodium Potassium Chloride Carbon Dioxide Anion Gap BUN Creatinine Est GFR ( Amer) Est GFR (Non-Af Amer) POC Glucose (mg/dL) 139 H Random Glucose Calcium Phosphorus Magnesium Total Bilirubin AST ALT Alkaline Phosphatase Total Protein Albumin Globulin Albumin/Globulin Ratio Carcinoembryonic Ag Blood Type Antibody Screen Critical Care Progress Note - Nutrition Nutrition: Nutrition Category Date Time Status NPO Diet [DIET] Diets 06/16/17 Breakfast Active Attending/Attestation - Attestation I have personally seen and examined this patient.: Yes I have fully participated in the care of the patient.: Yes I have reviewed all pertinent clinical information: Yes Notes (Text): 06/16/17 18:13 Patient seen and examined in the intensive care unit. Case discussed with staff in the morning rounds. Patient transferred to intensive care unit. Last night for hematemesis and hypotension Status post transfusion Seen by Gi , regarding pathology report, possible malignancy Continue Protonix Continue ICU observation Follow-up H&H
[2017-06-16] MEDS: Pantoprazole 80 MG in Sodium Chloride 0.9% 100 ML IV SCH ×3 (11:22→21:49)
--- NOTE | 2017-06-16 12:29 | CARD ---
APPROVED REPORT EKG Measurement Heart [id number] MI [id number] <Conclusion> Normal sinus rhythm Normal ECG
[2017-06-16 13:31] LABS: BASO # 0.1 K/uL (0.0-0.2); EOS # 0.1 K/uL (0.0-0.7); EOS % 0.8 % (0.0-4.0); LYMPH # 1.3 K/uL (1.0-4.3); LYMPH % 12.4 % (20.0-40.0); MEAN CORPUSCULAR HEMOGLOBIN 25.7 pg (27.0-31.0); MEAN CORPUSCULAR HGB CONC 33.1 g/dL (33.0-37.0); MONO # 0.6 K/uL (0.0-0.8); MONO % 5.6 % (0.0-10.0); NEUT # 8.5 K/uL (1.8-7.0); NEUT % 80.2 % (50.0-75.0); RBC 3.45 Mil/uL (4.40-5.90); RED CELL DISTRIBUTION WIDTH 29.8 % (11.5-14.5); WHITE BLOOD COUNT 10.6 K/uL (4.8-10.8)
[2017-06-16 13:34] LABS: HEMOGLOBIN 8.9 g/dL (12.0-18.0); MEAN CELL VOLUME 77.5 fL (80.0-94.0)
[2017-06-17] MEDS: Sodium Chloride 0.45% 1,000 ML IV SCH ×2 (01:11→05:00)
[2017-06-17] MEDS: Pantoprazole 80 MG in Sodium Chloride 0.9% 100 ML IVP SCH (04:03)
[2017-06-17] MEDS: Pantoprazole 80 MG in Sodium Chloride 0.9% 100 ML IV SCH ×4 (05:15→16:59)
[2017-06-17] MEDS: (Novolin R) Insulin Human Regular 100 units/ml vial SC SCH ×4 (05:38→23:45)
[2017-06-17 06:38] LABS: BASO # 0.1 K/uL (0.0-0.2); BASO % 1.2 % (0.0-2.0); EOS # 0.2 K/uL (0.0-0.7); HEMOGLOBIN 8.2 g/dL (12.0-18.0); LYMPH # 1.5 K/uL (1.0-4.3); LYMPH % 19.5 % (20.0-40.0); MEAN CELL VOLUME 77.2 fL (80.0-94.0); MEAN CORPUSCULAR HEMOGLOBIN 25.6 pg (27.0-31.0); MEAN CORPUSCULAR HGB CONC 33.1 g/dL (33.0-37.0); MEAN PLATELET VOLUME 7.5 fL (7.2-11.7); MONO # 0.5 K/uL (0.0-0.8); MONO % 6.4 % (0.0-10.0); NEUT # 5.5 K/uL (1.8-7.0); NEUT % 69.9 % (50.0-75.0); RBC 3.21 Mil/uL (4.40-5.90); RED CELL DISTRIBUTION WIDTH 29.1 % (11.5-14.5); WHITE BLOOD COUNT 7.9 K/uL (4.8-10.8)
[2017-06-17 07:15] LABS: ALB/GLOB RATIO 1.1 (1.0-2.1); ALT/SGPT 24 U/L (21-72); AST/SGOT 12 U/L (17-59); BLOOD UREA NITROGEN 22 mg/dL (9-20); GFR AFRICAN-AMERICAN > 60; GFR NON-AFRICAN AMERICAN > 60
[2017-06-17] MEDS: Fluticasone-Salmeterol 250-50mcg Diskus INH SCH ×2 (08:32→19:30)
[2017-06-17] MEDS: Dextrose 5%/0.45% NS 1,000 ML IV SCH (10:47)
--- NOTE | 2017-06-17 10:52 | CP.PCM.PN ---
Subjective - Date & Time of Evaluation Date of Evaluation: 06/17/17 Time of Evaluation: 10:30 - Subjective Subjective: F/u GI bleed and RN present. No further bleeding. Denies abdom pain, melena, hematemesis, Cp SOB, fever, VERMA cough, SZ, tremor, hematuria, dysuria, myalgia Objective - Vital Signs/Intake and Output Vital Signs (last 24 hours): Temp Pulse Resp BP Pulse Ox 98.5 F 75 10 L 150/70 99 06/17/17 08:00 06/17/17 09:00 06/17/17 09:00 06/17/17 08:16 06/17/17 09:00 Intake and Output: 06/17/17 06/17/17 06:59 18:59 Intake Total 840 210 Output Total 600 Balance 240 210 - Medications Medications: Current Medications Pantoprazole Sodium 80 mg/ (Sodium Chloride) 100 mls @ 10 mls/hr IV .Q10H CRUZ PRN Reason: 8 MG/HR Last Admin: 06/17/17 07:56 Dose: Not Given Dextrose/Sodium Chloride (Dextrose 5%/0.45% Ns 1000 Ml) 1,000 mls @ 60 mls/hr IV .[id number] [facility] Last Admin: 06/17/17 10:47 Dose: 60 mls/hr Insulin Human Regular (Novolin R) 0 unit SC Q6H CRUZ PRN Reason: Protocol Last Admin: 06/17/17 05:38 Dose: Not Given Pneumococcal Polyvalent Vaccine (Pneumovax 23 Vaccine) 0.5 ml SC .ONCE ONE Stop: 06/18/17 10:01 Fluticasone/Salmeterol (Advair Diskus 250/50) 1 puff INH RQ12 [facility] Last Admin: 06/17/17 08:32 Dose: 1 puff - Labs Labs: 06/17/17 06:34 06/17/17 06:32 PT 11.3 SECONDS (9.7-12.2) 06/14/17 14:09 INR 1.0 06/14/17 14:09 APTT 34 SECONDS (21-34) 06/14/17 14:09 - Constitutional Appears: Well - Neck Exam Neck Exam: Full ROM - Respiratory Exam Respiratory Exam: Clear to Ausculation Bilateral - Cardiovascular Exam Cardiovascular Exam: RRR - GI/Abdominal Exam GI & Abdominal Exam: Soft, Normal Bowel Sounds. absent: Guarding, Tenderness, Mass - Extremities Exam Extremities Exam: absent: Calf Tenderness - Neurological Exam Neurological Exam: Alert, Oriented x3 Assessment and Plan (1) Epigastric pain Assessment & Plan: Ulcer Status: Acute (2) Diabetes mellitus Status: Acute (3) HTN (hypertension) Status: Acute (4) Weight loss Assessment & Plan: Due to ulcer. Consider malignancy. CEA nl. Status: Acute (5) Acute GI hemorrhage Assessment & Plan: G ulcer Status: Acute (6) Chest pain Status: Acute (7) Abnormal CT of the abdomen Status: Acute (8) ARF (acute renal failure) Status: Acute (9) Ulcer, gastric, acute Assessment & Plan: Anatomy distorted from ulcer. Could be gastric, pyloric or duod ulcer. Ulcer is large. Consider due to NSAID or malignancy. CEA is normal. P-Check biopsy, PPI, check Hb. Advance to liqquid diet. Status: Acute
[2017-06-17] MEDS ORDERED: Albuterol HFA 90 mcg/actuation (8 g) INH PRN (11:24)
--- NOTE | 2017-06-17 11:29 | CP.CCUPN ---
<oRbel Mcmanus R - Last Filed: 06/17/17 11:24> CCU Subjective - Physician Review Subjective (Free Text): Patient was seen and examined. Has not had any further bloody emesis or bloody BM since the episode yesterday globe cleaner. Denies epigastric pain, nausea, vomiting. Patient remains NPO on PPI drip. CCU Objective - Vital Signs / Intake & Output Vital Signs (Last 4 hours): Vital Signs Temp Pulse Resp BP Pulse Ox 06/17/17 09:00 75 10 L 99 06/17/17 08:16 73 9 L 150/70 99 06/17/17 08:00 98.5 F 76 9 L 99 Intake and Output (Last 8hrs): Intake & Output 06/16/17 06/17/17 06/17/17 22:59 06:59 14:59 Intake Total 560 560 210 Output Total 600 200 Balance -40 360 210 Weight 171 lb 12.8 oz Intake: Intake, IV Amount 560 560 210 Left Antecubital 480 480 180 Right Antecubital 80 80 30 Oral 0 0 0 Output: Urine 600 200 Urine, Voided 600 200 Other: # Voids Urine, Voided 1 0 # Bowel Movements 0 0 - Medications Active Medications: Active Medications Generic Name Dose Route Start Last Admin Trade Name Freq PRN Reason Stop Dose Admin Albuterol 1 puff 06/17/17 11:24 Ventolin Hfa 90 Mcg/Actuation (8 G) INH RQ6 PRN Shortness of Breath Pantoprazole Sodium 80 mg/ 100 mls @ 10 mls/hr 06/16/17 11:30 06/17/17 07:56 Sodium Chloride IV Not Given .Q10H CRUZ 8 MG/HR Dextrose/Sodium Chloride 1,000 mls @ 60 mls/hr 06/17/17 10:45 06/17/17 10:47 Dextrose 5%/0.45% Ns 1000 Ml IV 60 mls/hr .[id number] Administration Insulin Human Regular 0 unit 06/16/17 05:15 06/17/17 05:38 Novolin R SC Not Given Q6H CRUZ Protocol Pneumococcal Polyvalent Vaccine 0.5 ml 06/18/17 10:00 Pneumovax 23 Vaccine SC 06/18/17 10:01 .ONCE ONE Fluticasone/Salmeterol 1 puff 06/15/17 20:00 06/17/17 08:32 Advair Diskus 250/50 INH 1 puff RQ12 CRUZ Administration - Patient Studies Lab Studies: Microbiology Studies 06/15/17 17:33 MRSA Culture (Admit) - Final Naris MRSA NOT DETECTED 06/16/17 04:35 MRSA Culture (Admit) - Final Naris MRSA NOT DETECTED 06/15/17 00:50 MRSA Culture (Admit) - Final Nose MRSA NOT DETECTED Lab Studies 06/17/17 06/17/17 06/17/17 Range/Units 06:34 06:32 05:37 WBC 7.9 (4.8-10.8) K/uL RBC 3.21 L (4.40-5.90) Mil/uL Hgb 8.2 L (12.0-18.0) g/dL Hct 24.8 L (35.0-51.0) % MCV 77.2 L (80.0-94.0) fL MCH 25.6 L (27.0-31.0) pg MCHC 33.1 (33.0-37.0) g/dL RDW 29.1 H (11.5-14.5) % Plt Count 372 (130-400) K/uL MPV 7.5 (7.2-11.7) fL Neut % (Auto) 69.9 (50.0-75.0) % Lymph % (Auto) 19.5 L (20.0-40.0) % Guthrie % (Auto) 6.4 (0.0-10.0) % Eos % (Auto) 3.0 (0.0-4.0) % Baso % (Auto) 1.2 (0.0-2.0) % Neut # (Auto) 5.5 (1.8-7.0) K/uL Lymph # (Auto) 1.5 (1.0-4.3) K/uL Guthrie # (Auto) 0.5 (0.0-0.8) K/uL Eos # (Auto) 0.2 (0.0-0.7) K/uL Baso # (Auto) 0.1 (0.0-0.2) K/uL Sodium 134 (132-148) mmol/L Potassium 3.6 (3.6-5.2) mmol/L Chloride 105 (98-107) mmol/L Carbon Dioxide 20 L (22-30) mmol/L Anion Gap 13 (10-20) BUN 22 H (9-20) mg/dL Creatinine 0.9 (0.8-1.5) mg/dL Est GFR ( Amer) > 60 Est GFR (Non-Af Amer) > 60 POC Glucose (mg/dL) 79 (65-110) mg/dL Random Glucose 85 (75-110) mg/dL Calcium 8.0 L (8.6-10.4) mg/dl Total Bilirubin 0.6 (0.2-1.3) mg/dL AST 12 L (17-59) U/L ALT 24 (21-72) U/L Alkaline Phosphatase 71 (38-126) U/L Total Protein 5.6 L (6.3-8.3) g/dL Albumin 3.0 L (3.5-5.0) g/dL Globulin 2.7 (2.2-3.9) gm/dL Albumin/Globulin Ratio 1.1 (1.0-2.1) 06/16/17 06/16/17 06/16/17 Range/Units 23:10 18:11 13:28 WBC 10.6 (4.8-10.8) K/uL RBC 3.45 L (4.40-5.90) Mil/uL Hgb 8.9 L D (12.0-18.0) g/dL Hct 26.8 L (35.0-51.0) % MCV 77.5 L D (80.0-94.0) fL MCH 25.7 L (27.0-31.0) pg MCHC 33.1 (33.0-37.0) g/dL RDW 29.8 H (11.5-14.5) % Plt Count 376 (130-400) K/uL MPV 7.0 L (7.2-11.7) fL Neut % (Auto) 80.2 H (50.0-75.0) % Lymph % (Auto) 12.4 L (20.0-40.0) % Guthrie % (Auto) 5.6 (0.0-10.0) % Eos % (Auto) 0.8 (0.0-4.0) % Baso % (Auto) 1.0 (0.0-2.0) % Neut # (Auto) 8.5 H (1.8-7.0) K/uL Lymph # (Auto) 1.3 (1.0-4.3) K/uL Guthrie # (Auto) 0.6 (0.0-0.8) K/uL Eos # (Auto) 0.1 (0.0-0.7) K/uL Baso # (Auto) 0.1 (0.0-0.2) K/uL Sodium (132-148) mmol/L Potassium (3.6-5.2) mmol/L Chloride (98-107) mmol/L Carbon Dioxide (22-30) mmol/L Anion Gap (10-20) BUN (9-20) mg/dL Creatinine (0.8-1.5) mg/dL Est GFR ( Amer) Est GFR (Non-Af Amer) POC Glucose (mg/dL) 90 100 (65-110) mg/dL Random Glucose (75-110) mg/dL Calcium (8.6-10.4) mg/dl Total Bilirubin (0.2-1.3) mg/dL AST (17-59) U/L ALT (21-72) U/L Alkaline Phosphatase (38-126) U/L Total Protein (6.3-8.3) g/dL Albumin (3.5-5.0) g/dL Globulin (2.2-3.9) gm/dL Albumin/Globulin Ratio (1.0-2.1) 06/16/17 Range/Units 11:56 WBC (4.8-10.8) K/uL RBC (4.40-5.90) Mil/uL Hgb (12.0-18.0) g/dL Hct (35.0-51.0) % MCV (80.0-94.0) fL MCH (27.0-31.0) pg MCHC (33.0-37.0) g/dL RDW (11.5-14.5) % Plt Count (130-400) K/uL MPV (7.2-11.7) fL Neut % (Auto) (50.0-75.0) % Lymph % (Auto) (20.0-40.0) % Guthrie % (Auto) (0.0-10.0) % Eos % (Auto) (0.0-4.0) % Baso % (Auto) (0.0-2.0) % Neut # (Auto) (1.8-7.0) K/uL Lymph # (Auto) (1.0-4.3) K/uL Guthrie # (Auto) (0.0-0.8) K/uL Eos # (Auto) (0.0-0.7) K/uL Baso # (Auto) (0.0-0.2) K/uL Sodium (132-148) mmol/L Potassium (3.6-5.2) mmol/L Chloride (98-107) mmol/L Carbon Dioxide (22-30) mmol/L Anion Gap (10-20) BUN (9-20) mg/dL Creatinine (0.8-1.5) mg/dL Est GFR ( Amer) Est GFR (Non-Af Amer) POC Glucose (mg/dL) 139 H (65-110) mg/dL Random Glucose (75-110) mg/dL Calcium (8.6-10.4) mg/dl Total Bilirubin (0.2-1.3) mg/dL AST (17-59) U/L ALT (21-72) U/L Alkaline Phosphatase (38-126) U/L Total Protein (6.3-8.3) g/dL Albumin (3.5-5.0) g/dL Globulin (2.2-3.9) gm/dL Albumin/Globulin Ratio (1.0-2.1) Laboratory Results - last 24 hr 06/16/17 06/16/17 06/16/17 11:56 13:28 18:11 WBC 10.6 RBC 3.45 L Hgb 8.9 L D Hct 26.8 L MCV 77.5 L D MCH 25.7 L MCHC 33.1 RDW 29.8 H Plt Count 376 MPV 7.0 L Neut % (Auto) 80.2 H Lymph % (Auto) 12.4 L Guthrie % (Auto) 5.6 Eos % (Auto) 0.8 Baso % (Auto) 1.0 Neut # (Auto) 8.5 H Lymph # (Auto) 1.3 Guthrie # (Auto) 0.6 Eos # (Auto) 0.1 Baso # (Auto) 0.1 Sodium Potassium Chloride Carbon Dioxide Anion Gap BUN Creatinine Est GFR ( Amer) Est GFR (Non-Af Amer) POC Glucose (mg/dL) 139 H 100 Random Glucose Calcium Total Bilirubin AST ALT Alkaline Phosphatase Total Protein Albumin Globulin Albumin/Globulin Ratio 06/16/17 06/17/17 06/17/17 23:10 05:37 06:32 WBC RBC Hgb Hct MCV MCH MCHC RDW Plt Count MPV Neut % (Auto) Lymph % (Auto) Guthrie % (Auto) Eos % (Auto) Baso % (Auto) Neut # (Auto) Lymph # (Auto) Guthrie # (Auto) Eos # (Auto) Baso # (Auto) Sodium 134 Potassium 3.6 Chloride 105 Carbon Dioxide 20 L Anion Gap 13 BUN 22 H Creatinine 0.9 Est GFR ( Amer) > 60 Est GFR (Non-Af Amer) > 60 POC Glucose (mg/dL) 90 79 Random Glucose 85 Calcium 8.0 L Total Bilirubin 0.6 AST 12 L ALT 24 Alkaline Phosphatase 71 Total Protein 5.6 L Albumin 3.0 L Globulin 2.7 Albumin/Globulin Ratio 1.1 06/17/17 06:34 WBC 7.9 RBC 3.21 L Hgb 8.2 L Hct 24.8 L MCV 77.2 L MCH 25.6 L MCHC 33.1 RDW 29.1 H Plt Count 372 MPV 7.5 Neut % (Auto) 69.9 Lymph % (Auto) 19.5 L Guthrie % (Auto) 6.4 Eos % (Auto) 3.0 Baso % (Auto) 1.2 Neut # (Auto) 5.5 Lymph # (Auto) 1.5 Guthrie # (Auto) 0.5 Eos # (Auto) 0.2 Baso # (Auto) 0.1 Sodium Potassium Chloride Carbon Dioxide Anion Gap BUN Creatinine Est GFR ( Amer) Est GFR (Non-Af Amer) POC Glucose (mg/dL) Random Glucose Calcium Total Bilirubin AST ALT Alkaline Phosphatase Total Protein Albumin Globulin Albumin/Globulin Ratio Fingerstick Blood Sugar Results: 149 - Procedures Procedures (Free Text): - Head Exam Head Exam: ATRAUMATIC, NORMAL INSPECTION, NORMOCEPHALIC - Eye Exam Eye Exam: EOMI, Normal appearance, PERRL Pupil Exam: NORMAL ACCOMODATION, PERRL - ENT Exam ENT Exam: Mucous Membranes Moist, Normal Exam, Normal Oropharynx - Neck Exam Neck exam: Positive for: Normal Inspection. Negative for: Lymphadenopathy, Thyromegaly - Respiratory Exam Respiratory Exam: Clear to Auscultation Bilateral, NORMAL BREATHING PATTERN. absent: Chest Wall Tenderness, Prolonged Expiratory Phase, Respiratory Distress - Cardiovascular Exam Cardiovascular Exam: REGULAR RHYTHM, +S1, +S2 - GI/Abdominal Exam GI & Abdominal Exam: Normal Bowel Sounds, Soft, Tenderness - Rectal Exam Rectal Exam: absent: NORMAL INSPECTION - Extremities Exam Extremities exam: Positive for: full ROM. Negative for: joint swelling, pedal edema Additional comments: chronic venous changes noted. - Back Exam Back exam: NORMAL INSPECTION. absent: CVA tenderness (L), CVA tenderness (R), paraspinal tenderness - Neurological Exam Neurological exam: Alert, CN II-XII Intact, Oriented x3 - Psychiatric Exam Psychiatric exam: Normal Affect, Normal Mood - Skin Skin Exam: Dry, Intact Review of Systems - Review of Systems All systems: reviewed and no additional remarkable complaints except (as above) Critical Care Progress Note - Nutrition Nutrition: Nutrition Category Date Time Status Liquid Diet [DIET] Diets 06/17/17 Breakfast Active Assessment/Plan - Assessment and Plan (Free Text) Assessment: 62 year old male with a past medical history of diabetes, hypertension, hypercholesterolemia being admitted for acute upper gi bleed. GI: Acute GI hemorrage, Early satiety Dr Chaudhry on board * Obtain surgery consult if bleeding continues. May need repeat EGD if biopsies non-diagnostic * Malignancy suspected EGD on 06/15 showed esophagitis, gastritis, gastric ulcer w/ clean base and gastric ulcer containing clot - biopsied - awaiting path results Has received 3 units pRBC since admission NPO PPI drip To go for Upper GI Series today Endo: DM Accucheck with coverage Pulm: Advair Diskus 1puff INH BID Albuterol HFA 1puff INH QID PRN <Mario Alberto Lal M - Last Filed: 06/17/17 15:20> CCU Objective - Vital Signs / Intake & Output Vital Signs (Last 4 hours): Vital Signs Temp Pulse Resp BP Pulse Ox 06/17/17 14:21 82 12 132/72 100 06/17/17 13:15 87 12 167/73 H 99 06/17/17 12:15 94 H 10 L 165/85 H 97 06/17/17 12:00 98.6 F 85 14 100 Intake and Output (Last 8hrs): Intake & Output 06/17/17 06/17/17 06/17/17 06:59 14:59 22:59 Intake Total 560 660 Output Total 200 375 Balance 360 285 Weight 171 lb 12.8 oz Intake: Intake, IV Amount 560 560 Left Antecubital 480 480 Right Antecubital 80 80 Oral 0 100 Output: Urine 200 375 Urine, Voided 200 375 Other: # Voids Urine, Voided 1 # Bowel Movements 0 - Medications Active Medications: Active Medications Generic Name Dose Route Start Last Admin Trade Name Freq PRN Reason Stop Dose Admin Albuterol 1 puff 06/17/17 11:24 Ventolin Hfa 90 Mcg/Actuation (8 G) INH RQ6 PRN Shortness of Breath Pantoprazole Sodium 80 mg/ 100 mls @ 10 mls/hr 06/16/17 11:30 06/17/17 07:56 Sodium Chloride IV Not Given .Q10H CRUZ 8 MG/HR Dextrose/Sodium Chloride 1,000 mls @ 60 mls/hr 06/17/17 10:45 06/17/17 10:47 Dextrose 5%/0.45% Ns 1000 Ml IV 60 mls/hr .[id number] Administration Insulin Human Regular 0 unit 06/16/17 05:15 06/17/17 11:27 Novolin R SC Not Given Q6H [facility] Protocol Pneumococcal Polyvalent Vaccine 0.5 ml 06/18/17 10:00 Pneumovax 23 Vaccine SC 06/18/17 10:01 .ONCE ONE Fluticasone/Salmeterol 1 puff 06/15/17 20:00 06/17/17 08:32 Advair Diskus 250/50 INH 1 puff RQ12 CRUZ Administration - Patient Studies Lab Studies: Microbiology Studies 06/15/17 17:33 MRSA Culture (Admit) - Final Naris MRSA NOT DETECTED 06/16/17 04:35 MRSA Culture (Admit) - Final Naris MRSA NOT DETECTED 06/15/17 00:50 MRSA Culture (Admit) - Final Nose MRSA NOT DETECTED Lab Studies 06/17/17 06/17/17 06/17/17 Range/Units 14:21 11:21 06:34 WBC 7.2 7.9 (4.8-10.8) K/uL RBC 3.12 L 3.21 L (4.40-5.90) Mil/uL Hgb 8.0 L 8.2 L (12.0-18.0) g/dL Hct 24.3 L 24.8 L (35.0-51.0) % MCV 77.8 L 77.2 L (80.0-94.0) fL MCH 25.6 L 25.6 L (27.0-31.0) pg MCHC 32.9 L 33.1 (33.0-37.0) g/dL RDW 29.7 H 29.1 H (11.5-14.5) % Plt Count 399 372 (130-400) K/uL MPV 7.2 7.5 (7.2-11.7) fL Neut % (Auto) 72.2 69.9 (50.0-75.0) % Lymph % (Auto) 18.6 L 19.5 L (20.0-40.0) % Guthrie % (Auto) 5.7 6.4 (0.0-10.0) % Eos % (Auto) 3.2 3.0 (0.0-4.0) % Baso % (Auto) 0.3 1.2 (0.0-2.0) % Neut # (Auto) 5.2 5.5 (1.8-7.0) K/uL Lymph # (Auto) 1.3 1.5 (1.0-4.3) K/uL Guthrie # (Auto) 0.4 0.5 (0.0-0.8) K/uL Eos # (Auto) 0.2 0.2 (0.0-0.7) K/uL Baso # (Auto) 0.0 0.1 (0.0-0.2) K/uL Sodium (132-148) mmol/L Potassium (3.6-5.2) mmol/L Chloride (98-107) mmol/L Carbon Dioxide (22-30) mmol/L Anion Gap (10-20) BUN (9-20) mg/dL Creatinine (0.8-1.5) mg/dL Est GFR ( Amer) Est GFR (Non-Af Amer) POC Glucose (mg/dL) 92 (65-110) mg/dL Random Glucose (75-110) mg/dL Calcium (8.6-10.4) mg/dl Total Bilirubin (0.2-1.3) mg/dL AST (17-59) U/L ALT (21-72) U/L Alkaline Phosphatase (38-126) U/L Total Protein (6.3-8.3) g/dL Albumin (3.5-5.0) g/dL Globulin (2.2-3.9) gm/dL Albumin/Globulin Ratio (1.0-2.1) 06/17/17 06/17/17 06/16/17 Range/Units 06:32 05:37 23:10 WBC (4.8-10.8) K/uL RBC (4.40-5.90) Mil/uL Hgb (12.0-18.0) g/dL Hct (35.0-51.0) % MCV (80.0-94.0) fL MCH (27.0-31.0) pg MCHC (33.0-37.0) g/dL RDW (11.5-14.5) % Plt Count (130-400) K/uL MPV (7.2-11.7) fL Neut % (Auto) (50.0-75.0) % Lymph % (Auto) (20.0-40.0) % Guthrie % (Auto) (0.0-10.0) % Eos % (Auto) (0.0-4.0) % Baso % (Auto) (0.0-2.0) % Neut # (Auto) (1.8-7.0) K/uL Lymph # (Auto) (1.0-4.3) K/uL Guthrie # (Auto) (0.0-0.8) K/uL Eos # (Auto) (0.0-0.7) K/uL Baso # (Auto) (0.0-0.2) K/uL Sodium 134 (132-148) mmol/L Potassium 3.6 (3.6-5.2) mmol/L Chloride 105 (98-107) mmol/L Carbon Dioxide 20 L (22-30) mmol/L Anion Gap 13 (10-20) BUN 22 H (9-20) mg/dL Creatinine 0.9 (0.8-1.5) mg/dL Est GFR ( Amer) > 60 Est GFR (Non-Af Amer) > 60 POC Glucose (mg/dL) 79 90 (65-110) mg/dL Random Glucose 85 (75-110) mg/dL Calcium 8.0 L (8.6-10.4) mg/dl Total Bilirubin 0.6 (0.2-1.3) mg/dL AST 12 L (17-59) U/L ALT 24 (21-72) U/L Alkaline Phosphatase 71 (38-126) U/L Total Protein 5.6 L (6.3-8.3) g/dL Albumin 3.0 L (3.5-5.0) g/dL Globulin 2.7 (2.2-3.9) gm/dL Albumin/Globulin Ratio 1.1 (1.0-2.1) 06/16/17 Range/Units 18:11 WBC (4.8-10.8) K/uL RBC (4.40-5.90) Mil/uL Hgb (12.0-18.0) g/dL Hct (35.0-51.0) % MCV (80.0-94.0) fL MCH (27.0-31.0) pg MCHC (33.0-37.0) g/dL RDW (11.5-14.5) % Plt Count (130-400) K/uL MPV (7.2-11.7) fL Neut % (Auto) (50.0-75.0) % Lymph % (Auto) (20.0-40.0) % Guthrie % (Auto) (0.0-10.0) % Eos % (Auto) (0.0-4.0) % Baso % (Auto) (0.0-2.0) % Neut # (Auto) (1.8-7.0) K/uL Lymph # (Auto) (1.0-4.3) K/uL Guthrie # (Auto) (0.0-0.8) K/uL Eos # (Auto) (0.0-0.7) K/uL Baso # (Auto) (0.0-0.2) K/uL Sodium (132-148) mmol/L Potassium (3.6-5.2) mmol/L Chloride (98-107) mmol/L Carbon Dioxide (22-30) mmol/L Anion Gap (10-20) BUN (9-20) mg/dL Creatinine (0.8-1.5) mg/dL Est GFR ( Amer) Est GFR (Non-Af Amer) POC Glucose (mg/dL) 100 (65-110) mg/dL Random Glucose (75-110) mg/dL Calcium (8.6-10.4) mg/dl Total Bilirubin (0.2-1.3) mg/dL AST (17-59) U/L ALT (21-72) U/L Alkaline Phosphatase (38-126) U/L Total Protein (6.3-8.3) g/dL Albumin (3.5-5.0) g/dL Globulin (2.2-3.9) gm/dL Albumin/Globulin Ratio (1.0-2.1) Laboratory Results - last 24 hr 06/16/17 06/16/17 06/17/17 18:11 23:10 05:37 WBC RBC Hgb Hct MCV MCH MCHC RDW Plt Count MPV Neut % (Auto) Lymph % (Auto) Guthrie % (Auto) Eos % (Auto) Baso % (Auto) Neut # (Auto) Lymph # (Auto) Guthrie # (Auto) Eos # (Auto) Baso # (Auto) Sodium Potassium Chloride Carbon Dioxide Anion Gap BUN Creatinine Est GFR ( Amer) Est GFR (Non-Af Amer) POC Glucose (mg/dL) 100 90 79 Random Glucose Calcium Total Bilirubin AST ALT Alkaline Phosphatase Total Protein Albumin Globulin Albumin/Globulin Ratio 06/17/17 06/17/17 06/17/17 06:32 06:34 11:21 WBC 7.9 RBC 3.21 L Hgb 8.2 L Hct 24.8 L MCV 77.2 L MCH 25.6 L MCHC 33.1 RDW 29.1 H Plt Count 372 MPV 7.5 Neut % (Auto) 69.9 Lymph % (Auto) 19.5 L Guthrie % (Auto) 6.4 Eos % (Auto) 3.0 Baso % (Auto) 1.2 Neut # (Auto) 5.5 Lymph # (Auto) 1.5 Guthrie # (Auto) 0.5 Eos # (Auto) 0.2 Baso # (Auto) 0.1 Sodium 134 Potassium 3.6 Chloride 105 Carbon Dioxide 20 L Anion Gap 13 BUN 22 H Creatinine 0.9 Est GFR ( Amer) > 60 Est GFR (Non-Af Amer) > 60 POC Glucose (mg/dL) 92 Random Glucose 85 Calcium 8.0 L Total Bilirubin 0.6 AST 12 L ALT 24 Alkaline Phosphatase 71 Total Protein 5.6 L Albumin 3.0 L Globulin 2.7 Albumin/Globulin Ratio 1.1 06/17/17 14:21 WBC 7.2 RBC 3.12 L Hgb 8.0 L Hct 24.3 L MCV 77.8 L MCH 25.6 L MCHC 32.9 L RDW 29.7 H Plt Count 399 MPV 7.2 Neut % (Auto) 72.2 Lymph % (Auto) 18.6 L Guthrie % (Auto) 5.7 Eos % (Auto) 3.2 Baso % (Auto) 0.3 Neut # (Auto) 5.2 Lymph # (Auto) 1.3 Guthrie # (Auto) 0.4 Eos # (Auto) 0.2 Baso # (Auto) 0.0 Sodium Potassium Chloride Carbon Dioxide Anion Gap BUN Creatinine Est GFR ( Amer) Est GFR (Non-Af Amer) POC Glucose (mg/dL) Random Glucose Calcium Total Bilirubin AST ALT Alkaline Phosphatase Total Protein Albumin Globulin Albumin/Globulin Ratio Critical Care Progress Note - Nutrition Nutrition: Nutrition Category Date Time Status Liquid Diet [DIET] Diets 06/17/17 Breakfast Active Attending/Attestation - Attestation I have personally seen and examined this patient.: Yes I have fully participated in the care of the patient.: Yes I have reviewed all pertinent clinical information: Yes Notes (Text): 06/17/17 15:19 Today: June The Patient was seen and examined at the bedside, Medical records reviewed, and management issues were discussed and formulated with the house staff. I have reviewed all the relevant clinical, laboratory, hemodynamic, radiographic data and medications Events reviewed Pain issues, skin care, head of the bed elevation, glycemic control were addressed. Agree with above resident's assessment and treatment plans of care as transcribed in Dr. Mcmanus note.
[2017-06-17 14:26] LABS: BASO % 0.3 % (0.0-2.0); EOS # 0.2 K/uL (0.0-0.7); EOS % 3.2 % (0.0-4.0); LYMPH # 1.3 K/uL (1.0-4.3); LYMPH % 18.6 % (20.0-40.0); MEAN CELL VOLUME 77.8 fL (80.0-94.0); MEAN CORPUSCULAR HEMOGLOBIN 25.6 pg (27.0-31.0); MEAN CORPUSCULAR HGB CONC 32.9 g/dL (33.0-37.0); MEAN PLATELET VOLUME 7.2 fL (7.2-11.7); MONO # 0.4 K/uL (0.0-0.8); MONO % 5.7 % (0.0-10.0); NEUT # 5.2 K/uL (1.8-7.0); NEUT % 72.2 % (50.0-75.0); RBC 3.12 Mil/uL (4.40-5.90); RED CELL DISTRIBUTION WIDTH 29.7 % (11.5-14.5); WHITE BLOOD COUNT 7.2 K/uL (4.8-10.8)
--- NOTE | 2017-06-17 18:04 | CP.PCM.PN ---
Subjective - Date & Time of Evaluation Date of Evaluation: 06/17/17 Time of Evaluation: 18:01 - Subjective Subjective: S: Feels better. No repeat GI bleed Objective - Vital Signs/Intake and Output Vital Signs (last 24 hours): Temp Pulse Resp BP Pulse Ox 98.4 F 77 10 L 147/80 97 06/17/17 16:00 06/17/17 17:15 06/17/17 17:15 06/17/17 17:15 06/17/17 17:15 Intake and Output: 06/17/17 06/17/17 06:59 18:59 Intake Total 840 1070 Output Total 600 525 Balance 240 545 - Medications Medications: Current Medications Albuterol (Ventolin Hfa 90 Mcg/Actuation (8 G)) 1 puff INH RQ6 PRN PRN Reason: Shortness of Breath Pantoprazole Sodium 80 mg/ (Sodium Chloride) 100 mls @ 10 mls/hr IV .Q10H CRUZ PRN Reason: 8 MG/HR Last Admin: 06/17/17 16:59 Dose: Not Given Dextrose/Sodium Chloride (Dextrose 5%/0.45% Ns 1000 Ml) 1,000 mls @ 60 mls/hr IV .[id number] CRUZ Last Admin: 06/17/17 10:47 Dose: 60 mls/hr Insulin Human Regular (Novolin R) 0 unit SC Q6H CRUZ PRN Reason: Protocol Last Admin: 06/17/17 17:47 Dose: Not Given Pneumococcal Polyvalent Vaccine (Pneumovax 23 Vaccine) 0.5 ml SC .ONCE ONE Stop: 06/18/17 10:01 Fluticasone/Salmeterol (Advair Diskus 250/50) 1 puff INH RQ12 CRUZ Last Admin: 06/17/17 08:32 Dose: 1 puff - Labs Labs: 06/17/17 14:21 06/17/17 06:32 PT 11.3 SECONDS (9.7-12.2) 06/14/17 14:09 INR 1.0 06/14/17 14:09 APTT 34 SECONDS (21-34) 06/14/17 14:09 - Constitutional Appears: No Acute Distress - Head Exam Head Exam: NORMAL INSPECTION - Eye Exam Eye Exam: Normal appearance - ENT Exam ENT Exam: Normal Exam - Neck Exam Neck Exam: Normal Inspection - Respiratory Exam Respiratory Exam: NORMAL BREATHING PATTERN - Cardiovascular Exam Cardiovascular Exam: REGULAR RHYTHM - GI/Abdominal Exam GI & Abdominal Exam: Soft - Rectal Exam Rectal Exam: Deferred - Back Exam Back Exam: NORMAL INSPECTION - Neurological Exam Neurological Exam: Alert Assessment and Plan (1) Ulcer, gastric, acute Status: Acute (2) Acute GI hemorrhage Status: Acute - Assessment and Plan (Free Text) Assessment: A/p: Continue medications. Awaiting biopsy repor
[2017-06-18] MEDS: Pantoprazole 80 MG in Sodium Chloride 0.9% 100 ML IV SCH ×2 (02:06→03:20)
[2017-06-18] MEDS: Dextrose 5%/0.45% NS 1,000 ML IV SCH ×2 (03:03→21:16)
[2017-06-18] MEDS: (Novolin R) Insulin Human Regular 100 units/ml vial SC SCH ×4 (05:04→22:46)
[2017-06-18 06:46] LABS: BASO # 0.1 K/uL (0.0-0.2); BASO % 1.3 % (0.0-2.0); EOS # 0.4 K/uL (0.0-0.7); EOS % 6.7 % (0.0-4.0); HEMOGLOBIN 8.2 g/dL (12.0-18.0); LYMPH # 1.2 K/uL (1.0-4.3); MEAN CELL VOLUME 76.8 fL (80.0-94.0); MEAN CORPUSCULAR HEMOGLOBIN 26.1 pg (27.0-31.0); MEAN CORPUSCULAR HGB CONC 33.9 g/dL (33.0-37.0); MEAN PLATELET VOLUME 7.1 fL (7.2-11.7); MONO # 0.5 K/uL (0.0-0.8); MONO % 6.9 % (0.0-10.0); NEUT # 4.4 K/uL (1.8-7.0); NEUT % 67.1 % (50.0-75.0); NRBC % 0.1 % (0.0-2.0); RBC 3.16 Mil/uL (4.40-5.90); RED CELL DISTRIBUTION WIDTH 29.1 % (11.5-14.5); WHITE BLOOD COUNT 6.5 K/uL (4.8-10.8)
--- NOTE | 2017-06-18 08:12 | CP.PCM.PN ---
Subjective - Date & Time of Evaluation Date of Evaluation: 06/18/17 Time of Evaluation: 08:09 - Subjective Subjective: F/U GI bleed. No bleeding, melena, RB. Denies abdom pain, nausea, vomiting, CP, SOB, VERMA, cough SZ, hematuria Objective - Vital Signs/Intake and Output Vital Signs (last 24 hours): Temp Pulse Resp BP Pulse Ox 98.5 F 70 17 139/74 99 06/18/17 04:00 06/18/17 07:15 06/18/17 07:15 06/18/17 07:15 06/18/17 07:15 Intake and Output: 06/18/17 06/18/17 06:59 18:59 Intake Total 1200 70 Output Total 900 Balance 300 70 - Medications Medications: Current Medications Albuterol (Ventolin Hfa 90 Mcg/Actuation (8 G)) 1 puff INH RQ6 PRN PRN Reason: Shortness of Breath Pantoprazole Sodium 80 mg/ (Sodium Chloride) 100 mls @ 10 mls/hr IV .Q10H [facility] PRN Reason: 8 MG/HR Last Admin: 06/18/17 03:20 Dose: Not Given Dextrose/Sodium Chloride (Dextrose 5%/0.45% Ns 1000 Ml) 1,000 mls @ 60 mls/hr IV .[id number] [facility] Last Admin: 06/18/17 03:03 Dose: 60 mls/hr Insulin Human Regular (Novolin R) 0 unit SC Q6H [facility] PRN Reason: Protocol Last Admin: 06/18/17 05:04 Dose: Not Given Pneumococcal Polyvalent Vaccine (Pneumovax 23 Vaccine) 0.5 ml SC .ONCE ONE Stop: 06/18/17 10:01 Fluticasone/Salmeterol (Advair Diskus 250/50) 1 puff INH RQ12 [facility] Last Admin: 06/17/17 19:30 Dose: 1 puff - Labs Labs: 06/18/17 06:32 06/17/17 06:32 PT 11.3 SECONDS (9.7-12.2) 06/14/17 14:09 INR 1.0 06/14/17 14:09 APTT 34 SECONDS (21-34) 06/14/17 14:09 - Constitutional Appears: Well - Respiratory Exam Respiratory Exam: Clear to Ausculation Bilateral - Cardiovascular Exam Cardiovascular Exam: RRR - GI/Abdominal Exam GI & Abdominal Exam: Soft, Normal Bowel Sounds. absent: Guarding, Tenderness, Mass - Extremities Exam Extremities Exam: absent: Pedal Edema - Neurological Exam Neurological Exam: Alert, Oriented x3 Assessment and Plan (1) Epigastric pain Assessment & Plan: ulcer Status: Acute (2) Diabetes mellitus Status: Acute (3) HTN (hypertension) Status: Acute (4) Weight loss Status: Acute (5) Acute GI hemorrhage Assessment & Plan: ulcer Status: Acute (6) Chest pain Status: Acute (7) Abnormal CT of the abdomen Status: Acute (8) ARF (acute renal failure) Status: Acute (9) Ulcer, gastric, acute Assessment & Plan: Complicated ulcer vs malignancy. Abnormal CT. Bleeding has stopped. Hb is stable. REC: PPI, check Hb, surgery follow up. If remains stable, will need repeat EGD 3 weeks. Status: Acute
[2017-06-18] MEDS: Fluticasone-Salmeterol 250-50mcg Diskus INH SCH (08:25)
[2017-06-18] MEDS ORDERED: Pneumococcal 23-Valent Vaccine SC ONE (10:00)
[2017-06-18] MEDS ORDERED: Influenza Vaccine 60 mcg/0.5 mL SYR (4YR UP) IM ONE (10:00)
[2017-06-18 14:23] VITALS: RESP 20
--- NOTE | 2017-06-18 19:35 | CP.PCM.PN ---
Subjective - Date & Time of Evaluation Date of Evaluation: 06/18/17 Time of Evaluation: 19:20 - Subjective Subjective: Pt is hungry. No CP, no SOB, no cough, no n/v, no diarrhea Objective - Vital Signs/Intake and Output Vital Signs (last 24 hours): Temp Pulse Resp BP Pulse Ox 98.4 F 73 20 151/75 H 97 06/18/17 16:00 06/18/17 16:00 06/18/17 16:00 06/18/17 16:00 06/18/17 16:00 Intake and Output: 06/18/17 06/19/17 18:59 06:59 Intake Total 450 Output Total 600 Balance -150 - Medications Medications: Current Medications Albuterol (Ventolin Hfa 90 Mcg/Actuation (8 G)) 1 puff INH RQ6 PRN PRN Reason: Shortness of Breath Amoxicillin (Amoxil 500 Mg Cap) 1,000 mg PO BID [facility] Last Admin: 06/18/17 13:56 Dose: 1,000 mg Clarithromycin (Biaxin Filmtab) 500 mg PO Q12H [facility] Last Admin: 06/18/17 13:56 Dose: 500 mg Dextrose/Sodium Chloride (Dextrose 5%/0.45% Ns 1000 Ml) 1,000 mls @ 60 mls/hr IV .[id number] [facility] Last Admin: 06/18/17 03:03 Dose: 60 mls/hr Insulin Human Regular (Novolin R) 0 unit SC Q6H [facility] PRN Reason: Protocol Last Admin: 06/18/17 17:35 Dose: Not Given Pantoprazole Sodium (Protonix Inj) 40 mg IVP Q12H [facility] Last Admin: 06/18/17 10:17 Dose: 40 mg Fluticasone/Salmeterol (Advair Diskus 250/50) 1 puff INH RQ12 [facility] Last Admin: 06/18/17 08:25 Dose: 1 puff - Labs Labs: 06/18/17 06:32 06/17/17 06:32 PT 11.3 SECONDS (9.7-12.2) 06/14/17 14:09 INR 1.0 06/14/17 14:09 APTT 34 SECONDS (21-34) 06/14/17 14:09 - Constitutional Appears: No Acute Distress - Eye Exam Eye Exam: Normal appearance Pupil Exam: absent: Fixed, Irregular - ENT Exam ENT Exam: Mucous Membranes Dry. absent: Mucous Membranes Moist - Neck Exam Neck Exam: Full ROM. absent: Lymphadenopathy - Respiratory Exam Respiratory Exam: Decreased Breath Sounds, Wheezes. absent: Rales, Rhonchi - Cardiovascular Exam Cardiovascular Exam: REGULAR RHYTHM, +S1, +S2. absent: Gallop, JVD, Murmur - GI/Abdominal Exam GI & Abdominal Exam: Soft. absent: Tenderness, Mass - Extremities Exam Extremities Exam: Full ROM, Normal Capillary Refill. absent: Calf Tenderness, Joint Swelling, Pedal Edema Assessment and Plan - Assessment and Plan (Free Text) Assessment: Bleeding PUD, HTN, NIDDM Cont meds/ still on NPO\ Feeding as per GI NTP for now
[2017-06-18] MEDS: Nitroglycerin 0.1 mg/hr Top Patch TD SCH (21:17)
[2017-06-19] MEDS: (Novolin R) Insulin Human Regular 100 units/ml vial SC SCH ×4 (05:15→22:16)
[2017-06-19 08:38] LABS: HEMOGLOBIN 8.4 g/dL (12.0-18.0); MEAN CELL VOLUME 76.8 fL (80.0-94.0); MEAN CORPUSCULAR HEMOGLOBIN 26.4 pg (27.0-31.0); MEAN CORPUSCULAR HGB CONC 34.4 g/dL (33.0-37.0); MEAN PLATELET VOLUME 7.4 fL (7.2-11.7); RBC 3.16 Mil/uL (4.40-5.90); RED CELL DISTRIBUTION WIDTH 30.2 % (11.5-14.5); WHITE BLOOD COUNT 5.4 K/uL (4.8-10.8)
[2017-06-19 09:05] LABS: ALB/GLOB RATIO 1.1 (1.0-2.1); ALBUMIN 3.3 g/dL (3.5-5.0); ALT/SGPT 18 U/L (21-72); AST/SGOT 25 U/L (17-59); BLOOD UREA NITROGEN 7 mg/dL (9-20); CALCIUM 8.4 mg/dl (8.6-10.4); GFR AFRICAN-AMERICAN > 60; GFR NON-AFRICAN AMERICAN > 60
[2017-06-19] MEDS: Nitroglycerin 0.1 mg/hr Top Patch TD SCH (10:21)
--- NOTE | 2017-06-19 12:04 | CP.PCM.PN ---
Subjective - Date & Time of Evaluation Date of Evaluation: 06/19/17 Time of Evaluation: 12:01 - Subjective Subjective: Patient denies having abdominal pain, nausea, vomiting. He has not had a bowel movement so far today. He wants to eat. Objective - Vital Signs/Intake and Output Vital Signs (last 24 hours): Temp Pulse Resp BP Pulse Ox 98.3 F 75 20 134/71 99 06/19/17 07:44 06/19/17 07:44 06/19/17 07:44 06/19/17 07:44 06/19/17 07:44 Intake and Output: 06/19/17 06/19/17 06:59 18:59 Intake Total 1120 Output Total 450 Balance 670 - Medications Medications: Current Medications Albuterol (Ventolin Hfa 90 Mcg/Actuation (8 G)) 1 puff INH RQ6 PRN PRN Reason: Shortness of Breath Amoxicillin (Amoxil 500 Mg Cap) 1,000 mg PO BID [facility] Last Admin: 06/19/17 10:22 Dose: 1,000 mg Clarithromycin (Biaxin Filmtab) 500 mg PO Q12H [facility] Last Admin: 06/18/17 22:46 Dose: 500 mg Dextrose/Sodium Chloride (Dextrose 5%/0.45% Ns 1000 Ml) 1,000 mls @ 60 mls/hr IV .[id number] [facility] Last Admin: 06/18/17 21:16 Dose: 60 mls/hr Insulin Human Regular (Novolin R) 0 unit SC Q6H [facility] PRN Reason: Protocol Last Admin: 06/19/17 05:15 Dose: Not Given Nitroglycerin (Nitro-Dur 0.1 Mg/Hr Patch) 1 patch TD DAILY [facility] Last Admin: 06/19/17 10:21 Dose: 1 patch Pantoprazole Sodium (Protonix Inj) 40 mg IVP Q12H [facility] Last Admin: 06/19/17 08:24 Dose: 40 mg Fluticasone/Salmeterol (Advair Diskus 250/50) 1 puff INH RQ12 [facility] Last Admin: 06/18/17 08:25 Dose: 1 puff - Labs Labs: 06/19/17 08:26 06/19/17 08:26 PT 11.3 SECONDS (9.7-12.2) 06/14/17 14:09 INR 1.0 06/14/17 14:09 APTT 34 SECONDS (21-34) 06/14/17 14:09 - Constitutional Appears: No Acute Distress - Head Exam Head Exam: ATRAUMATIC, NORMOCEPHALIC - Eye Exam Eye Exam: EOMI, PERRL - Neck Exam Neck Exam: absent: Lymphadenopathy, Thyromegaly - Respiratory Exam Respiratory Exam: NORMAL BREATHING PATTERN. absent: Rales, Rhonchi, Wheezes - Cardiovascular Exam Cardiovascular Exam: REGULAR RHYTHM, +S1, +S2. absent: Gallop, Rubs, Murmur - GI/Abdominal Exam GI & Abdominal Exam: Soft, Normal Bowel Sounds. absent: Tenderness, Mass, Organomegaly - Rectal Exam Rectal Exam: Deferred - Extremities Exam Extremities Exam: absent: Calf Tenderness, Pedal Edema Assessment and Plan (1) Ulcer, gastric, acute Assessment & Plan: Patient denies having abdominal pain. Vital signs are stable. Hemoglobin is stable at 8.4. Will advance diet. Status: Acute
[2017-06-19] MEDS: Dextrose 5%/0.45% NS 1,000 ML IV SCH (13:32)
--- NOTE | 2017-06-19 14:56 | CP.PCM.PN ---
Subjective - Date & Time of Evaluation Date of Evaluation: 06/19/17 Time of Evaluation: 14:53 - Subjective Subjective: S: Feels meenu. No repeat GI bleed. Objective - Vital Signs/Intake and Output Vital Signs (last 24 hours): Temp Pulse Resp BP Pulse Ox 98.3 F 75 20 134/71 99 06/19/17 07:44 06/19/17 07:44 06/19/17 07:44 06/19/17 07:44 06/19/17 07:44 Intake and Output: 06/19/17 06/19/17 06:59 18:59 Intake Total 1120 950 Output Total 450 Balance 670 950 - Medications Medications: Current Medications Albuterol (Ventolin Hfa 90 Mcg/Actuation (8 G)) 1 puff INH RQ6 PRN PRN Reason: Shortness of Breath Amoxicillin (Amoxil 500 Mg Cap) 1,000 mg PO BID [facility] Last Admin: 06/19/17 10:22 Dose: 1,000 mg Clarithromycin (Biaxin Filmtab) 500 mg PO Q12H [facility] Last Admin: 06/18/17 22:46 Dose: 500 mg Dextrose/Sodium Chloride (Dextrose 5%/0.45% Ns 1000 Ml) 1,000 mls @ 60 mls/hr IV .[id number] Last Admin: 06/19/17 13:32 Dose: 60 mls/hr Insulin Human Regular (Novolin R) 0 unit SC Q6H [facility] PRN Reason: Protocol Last Admin: 06/19/17 12:13 Dose: Not Given Nitroglycerin (Nitro-Dur 0.1 Mg/Hr Patch) 1 patch TD DAILY [facility] Last Admin: 06/19/17 10:21 Dose: 1 patch Pantoprazole Sodium (Protonix Inj) 40 mg IVP Q12H [facility] Last Admin: 06/19/17 08:24 Dose: 40 mg Fluticasone/Salmeterol (Advair Diskus 250/50) 1 puff INH RQ12 [facility] Last Admin: 06/18/17 08:25 Dose: 1 puff - Labs Labs: 06/19/17 08:26 06/19/17 08:26 PT 11.3 SECONDS (9.7-12.2) 06/14/17 14:09 INR 1.0 06/14/17 14:09 APTT 34 SECONDS (21-34) 06/14/17 14:09 - Constitutional Appears: No Acute Distress - Head Exam Head Exam: NORMAL INSPECTION - Eye Exam Eye Exam: Normal appearance - ENT Exam ENT Exam: Normal Exam - Neck Exam Neck Exam: Normal Inspection - Respiratory Exam Respiratory Exam: NORMAL BREATHING PATTERN - Cardiovascular Exam Cardiovascular Exam: REGULAR RHYTHM - GI/Abdominal Exam GI & Abdominal Exam: Soft - Rectal Exam Rectal Exam: Deferred - Extremities Exam Extremities Exam: Normal Inspection Assessment and Plan (1) Ulcer, gastric, acute Status: Acute (2) Acute GI hemorrhage Status: Acute - Assessment and Plan (Free Text) Assessment: A/p: Regular diet. Continue medications. D/c am if no repeat GI bleed
[2017-06-19] MEDS: Pantoprazole 40 mg EC Tab PO SCH (17:42)
[2017-06-19] MEDS: Fluticasone-Salmeterol 250-50mcg Diskus INH SCH (19:35)
[2017-06-20] MEDS: (Novolin R) Insulin Human Regular 100 units/ml vial SC SCH ×2 (06:15→12:07)
[2017-06-20 07:59] VITALS: BP 155/81; PULSE 100; TEMP 98.4; O2SAT 100
[2017-06-20] MEDS: Nitroglycerin 0.1 mg/hr Top Patch TD SCH (09:52)
[2017-06-20] MEDS: Pantoprazole 40 mg EC Tab PO SCH (09:52)
--- NOTE | 2017-06-20 10:48 | CP.PCM.DIS ---
Provider - Provider Date of Admission: 06/14/17 17:45 Attending physician: Glen Longoria MD Time Spent in preparation of Discharge (in minutes): 25 Diagnosis - Discharge Diagnosis (1) Ulcer, gastric, acute Status: Acute (2) Acute GI hemorrhage Status: Acute Hospital Course - Lab Results Lab Results: Micro Results 06/18/17 13:51 Nose MRSA Culture - Final MRSA NOT DETECTED 06/15/17 17:33 Naris MRSA Culture (Admit) - Final MRSA NOT DETECTED 06/16/17 04:35 Naris MRSA Culture (Admit) - Final MRSA NOT DETECTED 06/15/17 00:50 Nose MRSA Culture (Admit) - Final MRSA NOT DETECTED Most Recent Lab Values WBC 5.4 K/uL (4.8-10.8) 06/19/17 08:26 RBC 3.16 Mil/uL (4.40-5.90) L 06/19/17 08:26 Hgb 8.4 g/dL (12.0-18.0) L 06/19/17 08:26 Hct 24.3 % (35.0-51.0) L 06/19/17 08:26 MCV 76.8 fL (80.0-94.0) L 06/19/17 08:26 MCH 26.4 pg (27.0-31.0) L 06/19/17 08:26 MCHC 34.4 g/dL (33.0-37.0) 06/19/17 08:26 RDW 30.2 % (11.5-14.5) H 06/19/17 08:26 Plt Count 417 K/uL (130-400) H 06/19/17 08:26 MPV 7.4 fL (7.2-11.7) 06/19/17 08:26 Neut % (Auto) 67.1 % (50.0-75.0) 06/18/17 06:32 Lymph % (Auto) 18.0 % (20.0-40.0) L 06/18/17 06:32 [place] % (Auto) 6.9 % (0.0-10.0) 06/18/17 06:32 Eos % (Auto) 6.7 % (0.0-4.0) H 06/18/17 06:32 Baso % (Auto) 1.3 % (0.0-2.0) 06/18/17 06:32 Neut # (Auto) 4.4 K/uL (1.8-7.0) 06/18/17 06:32 Lymph # (Auto) 1.2 K/uL (1.0-4.3) 06/18/17 06:32 [place] # (Auto) 0.5 K/uL (0.0-0.8) 06/18/17 06:32 Eos # (Auto) 0.4 K/uL (0.0-0.7) 06/18/17 06:32 Baso # (Auto) 0.1 K/uL (0.0-0.2) 06/18/17 06:32 Neutrophils % (Manual) 84 % (50-75) H 06/16/17 03:59 Lymphocytes % (Manual) 8 % (20-40) L 06/16/17 03:59 Monocytes % (Manual) 4 % (0-10) 06/16/17 03:59 Eosinophils % (Manual) 2 % (0-4) 06/16/17 03:59 Basophils % (Manual) 2 % (0-2) 06/16/17 03:59 Differential Comment 06/14/17 14:09 Platelet Estimate Slightly increased (NORMAL) H 06/16/17 03:59 Large Platelets Present 06/16/17 03:59 Polychromasia Slight 06/16/17 03:59 Hypochromasia (manual) Moderate 06/16/17 03:59 Anisocytosis (manual) Moderate 06/16/17 03:59 Microcytosis (manual) Moderate 06/16/17 03:59 Ovalocytes Slight 06/16/17 03:59 PT 11.3 SECONDS (9.7-12.2) 06/14/17 14:09 INR 1.0 06/14/17 14:09 APTT 34 SECONDS (21-34) 06/14/17 14:09 D-Dimer, Quantitative 923 ng/mlDDU (0-243) H 06/14/17 14:09 Sodium 133 mmol/L (132-148) 06/19/17 08:26 Potassium 3.5 mmol/L (3.6-5.2) L 06/19/17 08:26 Chloride 103 mmol/L (98-107) 06/19/17 08:26 Carbon Dioxide 21 mmol/L (22-30) L 06/19/17 08:26 Anion Gap 13 (10-20) 06/19/17 08:26 BUN 7 mg/dL (9-20) L 06/19/17 08:26 Creatinine 0.9 mg/dL (0.8-1.5) 06/19/17 08:26 Est GFR ( Amer) > 60 06/19/17 08:26 Est GFR (Non-Af Amer) > 60 06/19/17 08:26 POC Glucose (mg/dL) 104 mg/dL (65-110) 06/20/17 07:12 Random Glucose 105 mg/dL (75-110) 06/19/17 08:26 Calcium 8.4 mg/dl (8.6-10.4) L 06/19/17 08:26 Phosphorus 4.0 mg/dL (2.5-4.5) 06/18/17 06:30 Magnesium 2.0 mg/dL (1.6-2.3) 06/18/17 06:30 Total Bilirubin 0.7 mg/dL (0.2-1.3) 06/19/17 08:26 AST 25 U/L (17-59) 06/19/17 08:26 ALT 18 U/L (21-72) L D 06/19/17 08:26 Alkaline Phosphatase 76 U/L (38-126) 06/19/17 08:26 Troponin I < 0.0120 ng/mL (0.00-0.120) 06/14/17 14:09 Total Protein 6.2 g/dL (6.3-8.3) L 06/19/17 08:26 Albumin 3.3 g/dL (3.5-5.0) L 06/19/17 08:26 Globulin 2.9 gm/dL (2.2-3.9) 06/19/17 08:26 Albumin/Globulin Ratio 1.1 (1.0-2.1) 06/19/17 08:26 Lipase 135 U/L (23-300) 06/14/17 19:05 Carcinoembryonic Ag 1.0 ng/mL (0-3.0) 06/16/17 06:23 Urine Color [place] (YELLOW) 06/14/17 15:50 Urine Clarity Hazy (Clear) 06/14/17 15:50 Urine pH 5.0 (5.0-8.0) 06/14/17 15:50 Ur Specific [place] 1.016 (1.003-1.030) 06/14/17 15:50 Urine Protein 2+ mg/dL (NEGATIVE) H 06/14/17 15:50 Urine Glucose (UA) Normal mg/dL (Normal) 06/14/17 15:50 Urine Ketones Negative mg/dL (NEGATIVE) 06/14/17 15:50 Urine Blood 2+ (NEGATIVE) H 06/14/17 15:50 Urine Nitrate Negative (NEGATIVE) 06/14/17 15:50 Urine Bilirubin Negative (NEGATIVE) 06/14/17 15:50 Urine Urobilinogen Normal mg/dL (0.2-1.0) 06/14/17 15:50 Ur Leukocyte Esterase 3+ Anthony/uL (Negative) H 06/14/17 15:50 Urine WBC (Auto) 125 /hpf (0-5) H 06/14/17 15:50 Urine RBC (Auto) 16 /hpf (0-3) H 06/14/17 15:50 Ur Squamous Epith Cells 1 /hpf (0-5) 06/14/17 15:50 Ur Transition Epith Cell 1 /hpf (0-3) 06/14/17 15:50 Urine Bacteria Mod (<OCC) H 06/14/17 15:50 Hyaline Casts >20 /lpf (0-2) H 06/14/17 15:50 Stool Occult Blood Positive (NEGATIVE) H 06/14/17 15:50 Blood Type O POSITIVE 06/14/17 19:05 Antibody Screen Negative 06/14/17 19:05 Discharge Exam - Head Exam Head Exam: NORMAL INSPECTION - Eye Exam Eye Exam: Normal appearance - ENT Exam ENT Exam: Mucous Membranes Moist - Neck Exam Neck exam: Normal Inspection - Respiratory Exam Respiratory Exam: NORMAL BREATHING PATTERN - Cardiovascular Exam Cardiovascular Exam: REGULAR RHYTHM - GI/Abdominal Exam GI & Abdominal Exam: Soft - Rectal Exam Rectal Exam: Deferred - Extremities Exam Extremities exam: normal inspection Discharge Plan - Follow Up Plan Condition: GOOD Disposition: HOME/ ROUTINE Clinical Quality Measures - CQM - Stroke Anticoagulation Prescribed for Atrial Flutter, Atrial Fibrillation and History of:: Medical Contraindication Present Contranindication/Reason for not providing: Risk for Bleeding - CQM - VTE Did patient receive overlap therapy during hosptialization?: No Is patient being discharged on overlap therapy?: No - Date & Time of Discharge Summary Date of Discharge Summary: 06/20/17 Time of Discharge Summary: 10:48
[2017-06-20] MEDS: Fluticasone-Salmeterol 250-50mcg Diskus INH SCH (11:00)
== END 2017-06-20 13:00 | disposition home or self-care (01) | DRG 378 ==
LOC: C.ER 10:24 → C.9E 17:45 → C.9I 21:57 → C.3T 06-15 17:58 → C.9I 06-16 04:14 → C.3T 06-18 14:12
PROVIDERS: ADMIT Internal Medicine; ATTEND Internal Medicine
PROC: 0DB38ZX Excision of Lower Esophagus, Via Natural or Artificial Opening Endoscopic, Diagnostic (ICD-10-PCS; 2017-06-15)
PROC: 0DB68ZX Excision of Stomach, Via Natural or Artificial Opening Endoscopic, Diagnostic (ICD-10-PCS; principal; 2017-06-15 07:39)
PROC: 30233N1 Transfusion of Nonautologous Red Blood Cells into Peripheral Vein, Percutaneous Approach (ICD-10-PCS; 2017-06-16)
DX: K25.4 Chronic or unspecified gastric ulcer with hemorrhage (principal); N17.9 Acute kidney failure, unspecified; E11.9 Type 2 diabetes mellitus without complications; E78.00 Pure hypercholesterolemia, unspecified; F17.210 Nicotine dependence, cigarettes, uncomplicated; B96.81 Helicobacter pylori [H. pylori] as the cause of diseases classified elsewhere; I10 Essential (primary) hypertension; J44.9 Chronic obstructive pulmonary disease, unspecified; R63.4 Abnormal weight loss; Z79.4 Long term (current) use of insulin